=== PATIENT | male | born 1940 | race Caucasian/White ===

== ENCOUNTER 2016-11-23 10:16 | Day surgery (SDC) | payer OTHER ==
[2016-11-23 12:15] VITALS: BMI 29.0
[2016-11-23] MEDS ORDERED: ROCURONIUM BROMIDE 50 MG/5 ML VIAL ONE (13:18)
[2016-11-23] MEDS ORDERED: PROPOFOL 20 ML ONE (13:18)
[2016-11-23] MEDS ORDERED: NEOSTIGMINE METHYLSULFATE 0.5 MG/ML - 10 ML MDV ONE (13:18)
[2016-11-23] MEDS ORDERED: ONDANSETRON 4 MG/2 ML VIAL ONE (13:18)
[2016-11-23] MEDS ORDERED: GLYCOPYRROLATE 0.2 MG/1 ML VIAL ONE ×3 (13:18)
[2016-11-23] MEDS ORDERED: METOCLOPRAMIDE HCL INJECTION 10 MG/2 ML VIAL ONE (13:19)
[2016-11-23] MEDS ORDERED: ceFAZolin SODIUM 1 GM VIAL ONE (13:41)
[2016-11-23] MEDS ORDERED: INDOMETHACIN 50 MG RECTAL SUPPOSITORY PR ONE (14:28)
[2016-11-23] MEDS ORDERED: IOHEXOL 300 MG/ML INFUS..BTL IV ONE (14:29)
[2016-11-23 14:30] VITALS: TEMP 98.3
[2016-11-23 14:44] VITALS: PULSE 53
[2016-11-23 15:23] VITALS: BP 136/65
[2016-11-24] MEDS ORDERED: INDOMETHACIN 50 MG RECTAL SUPPOSITORY PR SCH (10:00)
== END 2016-11-23 16:00 | disposition home or self-care (01) ==
LOC: JASU-ENDO 10:16
PROVIDERS: ATTEND Internal Medicine Gastroenterology
PROC: 0FC98ZZ Extirpation of Matter from Common Bile Duct, Via Natural or Artificial Opening Endoscopic (ICD-10-PCS; principal; 2016-11-23 13:00)
DX: K80.50 Calculus of bile duct without cholangitis or cholecystitis without obstruction (principal)
CPT/HCPCS: 74330-TC

== ENCOUNTER 2016-11-24 10:57 | Inpatient (IN) | payer OTHER ==
--- NOTE | 2016-11-24 11:12 | PDOC ---
History of Present Illness - General History Source: Patient Exam Limitations: No Limitations - History of Present Illness Initial Comments: 11/24/16 11:56 The patient is a 76 year old male, with a significant past medical history of CVA, HTN, depression, and hypercholesterolemia, who presents to the emergency department s/p ERCP yesterday with a subjective fever and chills last night. The patient also notes having chief complaints of abdominal bloating/pain, ranking his pain a 9/10 in pain intensity. The patients notes giving the patient Tylenol yesterday, after the onset of his subjective fevers/chills, with some alleviation of his symptoms. The patients reports that he has had 3 episodes of fevers and chills since the ERCP. He also reports anorexia and has not eaten since yesterday. He denies any recent, headache or dizziness. He denies any recent nausea, vomit, diarrhea or constipation. He denies any recent chest pain or shortness of breath. He denies any recent dysuria, frequency, urgency or hematuria. Allergies: NKA Past surgical history: None reported. Social History: Nonsmoker. Denies EtOH use and recreational drug use. Primary Care Physician: Dr. Sharma <Rancho Packer - Last Filed: 11/24/16 11:56> <Lynn Coppola - Last Filed: 11/24/16 21:31> - General Chief Complaint: Pain Stated Complaint: [id number] Time Seen by Provider: 11/24/16 11:12 Past History <Rancho Packer - Last Filed: 11/24/16 11:56> - Past Medical History Cardiac Disorders: Yes CVA: Yes GI Disorders: Yes (HIATAL HERNIA, COLON POLYP) HTN: Yes Hypercholesterolemia: Yes Liver Disease: Yes (FATTY LIVER, HEPATIC CYST) - Surgical History Abdominal Surgery: Yes Appendectomy: Yes Cardiac Surgery: No Neurologic Surgery: Yes - Psycho/Social/Smoking Cessation Hx Anxiety: No Suicidal Ideation: No Smoking Status: No Smoking History: Never smoked Have you smoked in the past 12 months: No Number of Cigarettes Smoked Daily: 0 If you are a former smoker, when did you quit?: MANY YRS AGO Hx Alcohol Use: No Drug/Substance Use Hx: No Substance Use Type: None <Lynn Coppola - Last Filed: 11/24/16 21:31> - Past Medical History Allergies/Adverse Reactions: Allergies Allergy/AdvReac Type Severity Reaction Status Date / Time No Known Allergies Allergy Verified 11/24/16 11:09 Home Medications: Ambulatory Orders Aspirin [ASA -] 81 mg PO DAILY 10/13/11 Meclizine HCl [Antivert -] 25 mg PO TID #0 tablet 10/13/11 Tamsulosin HCl 0.4 mg PO DAILY 10/13/11 Cholecalciferol (Vitamin D3) [Vitamin D3 -] 1,000 unit PO DAILY 11/23/16 Nebivolol HCl [Bystolic] 2 mg PO DAILY 11/23/16 Pantoprazole Sodium [Protonix -] 20 mg PO DAILY 11/23/16 Paroxetine HCl [Paxil -] 20 mg PO DAILY 11/23/16 Ubidecarenone [Co Q-10] 300 mg PO DAILY 11/23/16 Losartan 50Mg/Hctz 12.5MG [Hyzaar -] 0.5 tab PO HS 11/24/16 Review of Systems - Review of Systems Able to Perform ROS?: Yes Comments:: 11/24/16 11:56 GENERAL/CONSTITUTIONAL: +fever and chills. No weakness. HEAD, EYES, EARS, NOSE AND THROAT: No change in vision. No ear pain or discharge. No sore throat. CARDIOVASCULAR: No chest pain or shortness of breath. RESPIRATORY: No cough, wheezing, or hemoptysis. GASTROINTESTINAL:+abdominal pain. No nausea, vomiting, diarrhea or constipation. GENITOURINARY: No dysuria, frequency, or change in urination. MUSCULOSKELETAL: No joint or muscle swelling or pain. No neck or back pain. SKIN: No rash NEUROLOGIC: No headache, vertigo, loss of consciousness, or change in strength/ sensation. ENDOCRINE: No increased thirst. No abnormal weight change. HEMATOLOGIC/LYMPHATIC: No anemia, easy bleeding, or history of blood clots. ALLERGIC/IMMUNOLOGIC: No hives or skin allergy. <Rancho Packer - Last Filed: 11/24/16 11:56> *Physical Exam - Vital Signs Last Vital Signs Temp Pulse Resp BP Pulse Ox 98.2 F 95 H 20 126/60 98 11/24/16 11:03 11/24/16 11:03 11/24/16 11:03 11/24/16 11:03 11/24/16 11:38 - Physical Exam Comments: 11/24/16 11:56 GENERAL: Awake, alert, and fully oriented, in no acute distress HEAD: No signs of trauma EYES: PERRLA, EOMI, sclera anicteric, conjunctiva clear ENT: Auricles normal inspection, hearing grossly normal, nares patent, oropharynx clear without exudates. Moist mucosa NECK: Normal ROM, supple, no lymphadenopathy, JVD, or masses LUNGS: Breath sounds equal, clear to auscultation bilaterally. No wheezes, and no crackles HEART: Regular rate and rhythm, normal S1 and S2, no murmurs, rubs or gallops ABDOMEN: Distended abdomen with diffuse tenderness to palpation worse around the amarilys-umbilical area with rebound pain. No masses EXTREMITIES: Normal range of motion, no edema. No clubbing or cyanosis. No cords , erythema, or tenderness NEUROLOGICAL: Normal speech, cranial nerves intact, negative pronator drift, 5/ 5 strength in all 4 extremities, normal sensation to light touch in all 4 extremities, normal cerebellar exam, normal gait, normal reflexes and tone SKIN: Warm, Dry, normal turgor, no rashes or lesions noted. <Rancho Packer - Last Filed: 11/24/16 11:56> - Vital Signs Last Vital Signs Temp Pulse Resp BP Pulse Ox 98.2 F 95 H 20 126/60 92 L 11/24/16 11:03 11/24/16 11:03 11/24/16 11:03 11/24/16 11:03 11/24/16 11:03 <Lynn Coppola - Last Filed: 11/24/16 21:31> Heart Score/ECG Review #1 11/24/16 21:31 NSR, rate 78, normal axis and intervals, no NADINE, isolated TWI lead III <Lynn Coppola - Last Filed: 11/24/16 21:31> ED Treatment Course - LABORATORY CBC & Chemistry Diagram: 11/24/16 11:55 11/24/16 11:55 <Lynn Coppola - Last Filed: 11/24/16 21:31> Medical Decision Making - Medical Decision Making 11/24/16 11:41 76yo M hx HTN, BPH, depression, s/p ERCP for choledocholithiasis presents today with fevers, chills, abd pain, and anorexia since last night. Afebrile here but got tylenol 2 hours ago. Exam with diffuse abd pain w rebound. Presentation c/f post ERCP cholangitis vs perf. -labs -zosyn +vancomycin -ivf -CTAP -GI c/s -reassess 11/24/16 16:33 CTAP with likely duodenal perf, free air, and pancreatitis. ALso likely reactive ascending colitis. Dr. Sharma aware, NG tube placed. Pt to be admitted to the ICU for further management. Per Dr. Sharma, Dr. Cardoso and Alli already aware. 11/24/16 17:[address] Gordillo who will be the admitting attending, she is aware of the case. Also, spoke with Dr. Chang from ID who recommends that we add meropenem. Darryn ordered. 11/24/16 17:[address] Jones from surgery who is aware of the case and will see pt. <Lynn Coppola - Last Filed: 11/24/16 21:31> *DC/Admit/Observation/Transfer - Attestations Scribe Attestion: 11/24/16 11:57 Documentation prepared by Rancho Packer, acting as medical administrator for Lynn Coppola MD. <Rancho Packer - Last Filed: 11/24/16 11:56> - Discharge Dispostion Admit: Yes - Attestations Physician Attestion: 11/24/16 16:35 I, Dr. Lynn Coppola MD, attest that this document has been prepared under my direction and personally reviewed by me in its entirety. I further attest, that it accurately reflects all work, treatment, procedures and medical decision -making performed by me. <Lynn Coppola - Last Filed: 11/24/16 21:31> Diagnosis at time of Disposition: Abdominal pain Qualifiers: Abdominal location: generalized Qualified Code(s): R10.84 - Generalized abdominal pain - Discharge Dispostion Condition at time of disposition: Stable - Referrals
[2016-11-24] MEDS ORDERED: PIPERACILLIN/TAZOB 4.5 GM 4.5 GM in DEXTROSE 5%-WATER - 100 ML IVPB ONE (11:35)
[2016-11-24] MEDS ORDERED: SODIUM CHLORIDE 0.9% 500 ML INFUS.BAG IV ONE ×2 (11:36→13:21)
[2016-11-24 12:02] LABS: MCH 29.1 pg (25.7-33.7); MEAN CELL VOLUME 88.1 fl (80-96); MEAN PLT VOLUME 8.2 fl (7.5-11.1); PLATELET COUNT 240 K/MM3 (134-434); RDW 14.6 % (11.9-15.9); WHITE BLOOD COUNT 27.7 K/mm3 (4.0-10.0)
[2016-11-24 12:19] LABS: INR 1.29 (0.82-1.09); PROTHROMBIN TIME (PATIENT) 14.3 SEC (9.98-11.88)
[2016-11-24] MEDS ORDERED: PIPERACILLIN/TAZOB 4.5 GM 100 ML IVPB ONE (12:19)
[2016-11-24 12:21] LABS: ACTIVATED PTT 30.4 SECONDS (26.9-34.4)
[2016-11-24 12:26] LABS: ALBUMIN 3.4 g/dl (3.4-5.0); ANION GAP 7 (8-16); CALCIUM 9.3 mg/dL (8.5-10.1); CO2 29 mmol/L (21-32); GLUCOSE,RANDOM 153 mg/dL (74-106); MAGNESIUM 1.8 mg/dL (1.8-2.4)
[2016-11-24 12:29] LABS: CREATININE 1.2 mg/dL (0.7-1.3); SGOT/AST 15 U/L (15-37); SGPT/ALT 19 U/L (12-78)
[2016-11-24 12:30] LABS: ALK PHOS 60 U/L (45-117)
[2016-11-24 12:32] LABS: URINE APPEARANCE SLCLOUDY; URINE BILIRUBIN NEGATIVE (NEGATIVE); URINE BLOOD NEGATIVE (NEGATIVE); URINE COLOR AMBER; URINE GLUCOSE (UA) NEGATIVE (NEGATIVE); URINE KETONE TRACE (NEGATIVE); URINE LEUK ESTERASE NEGATIVE (NEGATIVE); URINE NITRITE NEGATIVE (NEGATIVE); URINE UROBILINOGEN NEGATIVE mg/dL (0.2-1.0)
[2016-11-24 12:34] LABS: URINE PROTEIN 1+ (NEGATIVE)
[2016-11-24 12:36] LABS: URINE HYALINE CAST 5 /lpf; URINE MUCUS FEW; URINE RBC 3 /hpf (0-3); URINE WBC 1 /hpf (3-5)
[2016-11-24 12:37] LABS: TOTAL CELLS COUNTED 100
[2016-11-24 12:38] LABS: METAMYELOCYTE 1 % (0-2)
[2016-11-24] MEDS ORDERED: VANCOMYCIN 1,000 MG in DEXTROSE 5%-WATER - 250 ML IVPB ONE (16:31)
--- NOTE | 2016-11-24 16:46 | CON.GI ---
Consult Consult Specialty:: Gastroenterology Referred by:: Dr Gordillo Reason for Consultation:: abdominal pain - History of Present Illness History of Present Illness: 76 y/o male s/p ERCP with removal of large stone yesterday. He was discharge with no abdominal pain,no nausea and vomiting. Last night he developed severe abdominal pain and fever. He was instructed to go to the emergenvy room. The WBC was 28,000. The cats scan was reviwed and was noted to have perforation in the area to the duodenum with 8cm collection. There was no leakage of dye outside the lumen. There was mild ileus. NGT was inserted and a total of 500 cc of dark fluid was obtained,. - Alcohol/Substance Use Hx Alcohol Use: No - Smoking History Smoking history: Never smoked Have you smoked in the past 12 months: No Aproximately how many cigarettes per day: 0 If you are a former smoker, when did you quit?: MANY YRS AGO Home Medications - Allergies Allergies/Adverse Reactions: Allergies Allergy/AdvReac Type Severity Reaction Status Date / Time No Known Allergies Allergy Verified 11/24/16 11:09 - Home Medications Home Medications: Ambulatory Orders Aspirin [ASA -] 81 mg PO DAILY 10/13/11 Meclizine HCl [Antivert -] 25 mg PO TID #0 tablet 10/13/11 Tamsulosin HCl 0.4 mg PO DAILY 10/13/11 Cholecalciferol (Vitamin D3) [Vitamin D3 -] 1,000 unit PO DAILY 11/23/16 Nebivolol HCl [Bystolic] 2 mg PO DAILY 11/23/16 Pantoprazole Sodium [Protonix -] 20 mg PO DAILY 11/23/16 Paroxetine HCl [Paxil -] 20 mg PO DAILY 11/23/16 Ubidecarenone [Co Q-10] 300 mg PO DAILY 11/23/16 Losartan 50Mg/Hctz 12.5MG [Hyzaar -] 0.5 tab PO HS 11/24/16 Review of Systems - Review of Systems Constitutional: reports: Fever HENT: denies: Difficult Swallowing, Throat Pain Cardiovascular: denies: Chest Pain Gastrointestinal: reports: Abdominal Pain (--ruq). denies: Bloating, Constipation, Dysphagia, Indigestion, Melena Physical Exam-GI Vital Signs: Vital Signs Temperature 98.2 F 11/24/16 11:03 Pulse Rate 95 H 11/24/16 11:03 Respiratory Rate 20 11/24/16 11:03 Blood Pressure 126/60 11/24/16 11:03 O2 Sat by Pulse Oximetry (%) 98 11/24/16 11:38 Constitutional: Yes: Well Nourished Eyes: Yes: Conjunctiva Clear HENT: Yes: Atraumatic Neck: Yes: Supple Cardiovascular: Yes: Regular Rate and Rhythm Respiratory: Yes: CTA Bilaterally Gastrointestinal Inspection: Yes: Distention ...Palpate: Yes: Soft, Tenderness (--ruq resolved after NGT drainage). No: Firm /Rigid, Guarding, Hepatomegaly, Mass, Pulsatile Mass, Splenomegaly ...Percussion: Yes: Tympanitic Labs: CBC, BMP 11/24/16 11:55 11/24/16 11:55 INR, PTT INR 1.29 (0.82-1.09) H 11/24/16 11:55 Problem List - Problems (1) Duodenal perforation Assessment/Plan: after ERCp with removal of large CBD stone R> NGT drainage IV antibiotics Iv hydration surgical consultation Code(s): K63.1 - PERFORATION OF INTESTINE (NONTRAUMATIC)
[2016-11-24] MEDS ORDERED: VANCOMYCIN 1 GRAM (PRE-DOCKED) 250 ML IVPB ONE (16:51)
[2016-11-24] MEDS ORDERED: DEXTROSE 5%-NORMAL SALINE 1,000 ML IV SCH (17:00)
[2016-11-24] MEDS ORDERED: MEROPENEM 1,000 MG in DEXTROSE 5%-WATER - 100 ML IVPB ONE (17:10)
[2016-11-24] MEDS ORDERED: IMIPENEM/CILASTATIN SODIUM 500 MG in DEXTROSE 5%-WATER - 100 ML IVPB ONE (17:30)
[2016-11-24] MEDS ORDERED: MEROPENEM 1 GM in DEXTROSE 5%-WATER - 100 ML IVPB SCH (18:00)
[2016-11-24] MEDS ORDERED: HYDROmorphone HCL CARPU-JECT 1 MG/1 ML DISP.SYRIN ONE (18:10)
[2016-11-24] MEDS: HYDROmorphone HCL CARPU-JECT 1 MG/1 ML DISP.SYRIN IVPB PRN (18:22)
[2016-11-24] MEDS ORDERED: METRONIDAZOLE 500 MG PREMIXED 100 ML IVPB ONE (18:26)
[2016-11-24] MEDS ORDERED: METOCLOPRAMIDE HCL INJECTION 10 MG/2 ML VIAL ONE (18:26)
[2016-11-24] MEDS: METOCLOPRAMIDE HCL INJECTION 10 MG/2 ML VIAL IVPB SCH (18:34)
[2016-11-24] MEDS: METRONIDAZOLE 500 MG PREMIXED 100 ML IVPB SCH (18:59)
--- NOTE | 2016-11-24 20:35 | HP ---
Admitting History and Physical - Admission Chief Complaint: Abdominal pain History of Present Illness: Pt is a 76 y/o male w/ PMH significant for HTN, HLD, CVA, BPH and depression. Pt also has a h/o choledocholithiasis and underwent ERCP yesterday w/ stone extraction. Pt last night developed fever and chills wc was accompanied w/ abdominal discomfort and bloating. Pt denied any N/V and no diarrhea/ constipation. 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 Cardiovascular: Yes: HTN, Hyperlipdemia Gastrointestinal: Yes: Other (Choledocholithiasis) Renal/: Yes: BPH Psych: Yes: Depression - Smoking History Smoking history: Never smoked Have you smoked in the past 12 months: No Aproximately how many cigarettes per day: 0 If you are a former smoker, when did you quit?: MANY YRS AGO - Alcohol/Substance Use Hx Alcohol Use: No Home Medications - Allergies Allergies/Adverse Reactions: Allergies Allergy/AdvReac Type Severity Reaction Status Date / Time No Known Allergies Allergy Verified 11/24/16 11:09 - Home Medications Home Medications: Ambulatory Orders Aspirin [ASA -] 81 mg PO DAILY 10/13/11 Meclizine HCl [Antivert -] 25 mg PO TID #0 tablet 10/13/11 Tamsulosin HCl 0.4 mg PO DAILY 10/13/11 Cholecalciferol (Vitamin D3) [Vitamin D3 -] 1,000 unit PO DAILY 11/23/16 Nebivolol HCl [Bystolic] 2 mg PO DAILY 11/23/16 Pantoprazole Sodium [Protonix -] 20 mg PO DAILY 11/23/16 Paroxetine HCl [Paxil -] 20 mg PO DAILY 11/23/16 Ubidecarenone [Co Q-10] 300 mg PO DAILY 11/23/16 Losartan 50Mg/Hctz 12.5MG [Hyzaar -] 0.5 tab PO HS 11/24/16 Family Disease History - Family Disease History Family History: Unremarkable Review of Systems - Review of Systems Constitutional: reports: Chills, Fever Eyes: reports: No Symptoms HENT: reports: No Symptoms Neck: reports: No Symptoms Cardiovascular: reports: No Symptoms Respiratory: reports: No Symptoms Gastrointestinal: reports: Abdominal Pain, Bloating Genitourinary: reports: No Symptoms Musculoskeletal: reports: No Symptoms Physical Examination Vital Signs: Vital Signs Temperature 98.3 F 11/24/16 16:56 Pulse Rate 95 H 11/24/16 16:56 Respiratory Rate 17 11/24/16 16:56 Blood Pressure 131/83 11/24/16 16:56 O2 Sat by Pulse Oximetry (%) 97 11/24/16 18:28 Constitutional: Yes: No Distress HENT: Yes: WNL Neck: Yes: WNL, Supple Cardiovascular: Yes: WNL, Regular Rate and Rhythm Respiratory: Yes: WNL, Regular, CTA Bilaterally Gastrointestinal: Yes: Normal Bowel Sounds, Soft, Tenderness, Other Musculoskeletal: Yes: WNL Extremities: Yes: WNL Edema: No Neurological: Yes: WNL ...Motor Strength: WNL Problem List - Problems (1) Abdominal pain Assessment/Plan: Due to duodenal perforation/pancreatitis GI/Surgical consults Cont IVF/NPO Cont IV antibxs Code(s): R10.9 - UNSPECIFIED ABDOMINAL PAIN Qualifiers: Abdominal location: generalized Qualified Code(s): R10.84 - Generalized abdominal pain (2) Duodenal perforation Code(s): K63.1 - PERFORATION OF INTESTINE (NONTRAUMATIC) (3) Pancreatitis Assessment/Plan: Cont IVF Cont IV antibxs Monitor labs Code(s): K85.90 - ACUTE PANCREATITIS WITHOUT NECROSIS OR INFECTION, UNSP (4) HTN (hypertension) Assessment/Plan: Monitor BP Antihypertensives on hold while pt is NPO Code(s): I10 - ESSENTIAL (PRIMARY) HYPERTENSION (5) HLD (hyperlipidemia) Code(s): E78.5 - HYPERLIPIDEMIA, UNSPECIFIED (6) BPH (benign prostatic hyperplasia) Code(s): N40.0 - BENIGN PROSTATIC HYPERPLASIA WITHOUT LOWER URINRY TRACT SYMP
[2016-11-24 20:51] VITALS: BMI 29.3
--- NOTE | 2016-11-24 21:21 | CONSULT ---
Consult Consult Specialty:: PUlm/CCM Reason for Consultation:: Duodenal perforation post ERCP - History of Present Illness Chief Complaint: Abd pain; fever History of Present Illness: 76yom with PMHx CVA, HTN, HLD, BPH, depression, choledocholelithiasis s/p ERCP on 11/23 now presents with c/o fever, chills, abd pain and distension. CT scan s/ f duodenal perforation and pancreatitis. In ED VSS. Labs notable for WBC 28, Lipase 8488. GI consulted. Made NPO. Started on meropenem, flagyl and IVF. He denied CP, SOB, n/v/d but reports anorexia and constipation. He is transferred to ICU for management. In ICU rec'd A+O x3 c/o 10/21 abd pain. VS HR 103, BP 125/68, RR 18, T 99.3, O2sat 91% on 3L NC. + abdominal distension and tenderness to palpation. Voiding w/o difficulty. pain improved with Tylenol and dilaudid IV. O2 sat 96% on 5L. 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 Cardio/Vascular: Yes: HTN, Hyperlipdemia Hepatobiliary: Yes: Cholelithiasis Psych: Yes: Depression - Past Surgical History Additional Surgical History: ERCP 11/23/16 - Alcohol/Substance Use Hx Alcohol Use: No - Smoking History Smoking history: Never smoked Have you smoked in the past 12 months: No Aproximately how many cigarettes per day: 0 If you are a former smoker, when did you quit?: MANY YRS AGO - Social History Usual Living Arrangement: With Spouse History of Recent Travel: No Home Medications - Allergies Allergies/Adverse Reactions: Allergies Allergy/AdvReac Type Severity Reaction Status Date / Time No Known Allergies Allergy Verified 11/24/16 11:09 - Home Medications Home Medications: Ambulatory Orders Aspirin [ASA -] 81 mg PO DAILY 10/13/11 Meclizine HCl [Antivert -] 25 mg PO TID #0 tablet 10/13/11 Tamsulosin HCl 0.4 mg PO DAILY 10/13/11 Cholecalciferol (Vitamin D3) [Vitamin D3 -] 1,000 unit PO DAILY 11/23/16 Nebivolol HCl [Bystolic] 2 mg PO DAILY 11/23/16 Pantoprazole Sodium [Protonix -] 20 mg PO DAILY 11/23/16 Paroxetine HCl [Paxil -] 20 mg PO DAILY 11/23/16 Ubidecarenone [Co Q-10] 300 mg PO DAILY 11/23/16 Losartan 50Mg/Hctz 12.5MG [Hyzaar -] 0.5 tab PO HS 11/24/16 Review of Systems - Review of Systems Constitutional: reports: Chills, Fever Eyes: reports: No Symptoms HENT: reports: No Symptoms Neck: reports: No Symptoms Cardiovascular: reports: No Symptoms Respiratory: reports: No Symptoms Gastrointestinal: reports: Abdominal Pain, Bloating, Other (Constipation) Genitourinary: reports: No Symptoms Musculoskeletal: reports: No Symptoms Neurological: reports: No Symptoms Hematology/Lymphatic: reports: No Symptoms Psychiatric: reports: No Symptoms Pain Intensity: 7 Physical Exam Vital Signs: Vital Signs Temperature 98.3 F 11/24/16 16:56 Pulse Rate 95 H 11/24/16 16:56 Respiratory Rate 17 11/24/16 16:56 Blood Pressure 131/83 11/24/16 16:56 O2 Sat by Pulse Oximetry (%) 97 11/24/16 18:28 Constitutional: Yes: Well Nourished, No Distress, Calm Eyes: Yes: WNL HENT: Yes: Atraumatic, Normocephalic Neck: Yes: Supple, Trachea Midline Cardiovascular: Yes: Tachycardia Respiratory: Yes: WNL, Diminished (Bibasilar), On Nasal O2 Gastrointestinal: Yes: Abdomen, Obese, Distention, Hypoactive Bowel Sounds, Tenderness, Other (NGT to suction) Renal/: Yes: WNL Musculoskeletal: Yes: WNL, Back Pain Extremities: Yes: WNL Edema: No Peripheral Pulses WNL: Yes Integumentary: Yes: WNL Neurological: Yes: Alert, Oriented ...Motor Strength: WNL Psychiatric: Yes: Alert, Oriented Labs: CBC,CMP WBC 27.7 K/mm3 (4.0-10.0) H D 11/24/16 11:55 RBC 5.07 M/mm3 (4.00-5.60) 11/24/16 11:55 Hgb 14.7 GM/dL (11.7-16.9) 11/24/16 11:55 Hct 44.7 % (35.4-49) 11/24/16 11:55 MCV 88.1 fl (80-96) 11/24/16 11:55 MCH 29.1 pg (25.7-33.7) 11/24/16 11:55 MCHC 33.0 g/dl (32.0-35.9) 11/24/16 11:55 RDW 14.6 % (11.9-15.9) 11/24/16 11:55 Plt Count 240 K/MM3 (134-434) 11/24/16 11:55 MPV 8.2 fl (7.5-11.1) 11/24/16 11:55 Total Counted 100 11/24/16 11:55 Neutrophils % Y 11/24/16 11:55 Neutrophils % (Manual) 86 % (42.8-82.8) H 11/24/16 11:55 Band Neuts % (Manual) 1 % (0-10) 11/24/16 11:55 Lymphocytes % Y 11/24/16 11:55 Lymphocytes % (Manual) 8 % (8-40) 11/24/16 11:55 Monocytes % (Manual) 4 % (3.8-10.2) 11/24/16 11:55 Sodium 134 mmol/L (136-145) L 11/24/16 11:55 Potassium 5.1 mmol/L (3.5-5.1) D 11/24/16 11:55 Chloride 98 mmol/L (98-107) 11/24/16 11:55 Carbon Dioxide 29 mmol/L (21-32) 11/24/16 11:55 Anion Gap 7 (8-16) L 11/24/16 11:55 BUN 20 mg/dL (7-18) H D 11/24/16 11:55 Creatinine 1.2 mg/dL (0.7-1.3) D 11/24/16 11:55 Creat Clearance w eGFR 59.02 (>60) 11/24/16 11:55 Random Glucose 153 mg/dL (74-106) H 11/24/16 11:55 Calcium 9.3 mg/dL (8.5-10.1) 11/24/16 11:55 Magnesium 1.8 mg/dL (1.8-2.4) 11/24/16 11:55 Total Bilirubin 1.0 mg/dL (0.2-1.0) D 11/24/16 11:55 AST 15 U/L (15-37) D 11/24/16 11:55 ALT 19 U/L (12-78) D 11/24/16 11:55 Alkaline Phosphatase 60 U/L (45-117) 11/24/16 11:55 Total Protein 7.0 g/dl (6.4-8.2) 11/24/16 11:55 Albumin 3.4 g/dl (3.4-5.0) 11/24/16 11:55 Lipase 8488 U/L (73-393) H 11/24/16 11:55 Current Medications Hydromorphone HCl (Dilaudid Injection -) 1 mg IVPB Q4H PRN PRN Reason: PAIN Stop: 11/25/16 17:45 Last Admin: 11/24/16 18:22 Dose: 1 mg Metronidazole (Flagyl 500mg Premixed Ivpb -) 100 mls @ 100 mls/hr IVPB Q8H-IV MATILDE Last Admin: 11/24/16 18:59 Dose: 100 mls/hr Dextrose/Sodium Chloride (D5-Ns -) 1,000 mls @ 150 mls/hr IV ASDIR MATILDE Stop: 11/26/16 23:39 Last Admin: 11/24/16 17:47 Dose: 150 mls/hr Pantoprazole Sodium 40 mg/ (Sodium Chloride) 100 mls @ 200 mls/hr IVPB BID MATILDE Meropenem 1 gm/ Dextrose 100 mls @ 100 mls/hr IVPB Q8H-IV MATILDE PRN Reason: Protocol Metoclopramide HCl (Reglan Injection -) 10 mg IVPB Q8H-IV MATILDE Last Admin: 11/24/16 18:34 Dose: 10 mg Intake & Output 11/21/16 11/22/16 11/23/16 11/24/16 23:59 23:59 23:59 23:59 Output Total 650 Balance -650 Weight 85 kg Imaging - Results Cat Scan: Report Reviewed Ultrasound: Report Reviewed Problem List - Problems (1) Abdominal pain Code(s): R10.9 - UNSPECIFIED ABDOMINAL PAIN Qualifiers: Abdominal location: generalized Qualified Code(s): R10.84 - Generalized abdominal pain (2) Duodenal perforation Code(s): K63.1 - PERFORATION OF INTESTINE (NONTRAUMATIC) (3) Ileus Code(s): K56.7 - ILEUS, UNSPECIFIED Assessment/Plan 76yom with PMHx CVA, HTN, HLD, choledocholelithiasis s/p ERCP on 11/23 now presents with abd pain and distension, found to have duodenal perforation and pancreatitis. Admitted to ICU for management. Plan: -GI consult -HD monitoring -NPO -IVF at 150cc/h for pancreatitis -Calc Arvilla score -NGT to LWS for bowel rest -Cont anaerobic coverage meropenem and flagyl -Pain management -trend WBC and temps -Monitor lactate and lipase -PPI -DVT prophylaxis
[2016-11-24] MEDS ORDERED: ACETAMINOPHEN 1000 MG/100 ML VIAL (NON FORMULARY) IVPB PRN (21:34)
[2016-11-24] MEDS: PANTOPRAZOLE SODIUM 40 MG in SODIUM CHLORIDE 100 ML IVPB SCH (23:37)
[2016-11-25] MEDS: METRONIDAZOLE 500 MG PREMIXED 100 ML IVPB SCH ×3 (02:00→17:30)
[2016-11-25] MEDS: MEROPENEM 1 GM in DEXTROSE 5%-WATER - 100 ML IVPB SCH ×3 (02:00→17:30)
[2016-11-25] MEDS: METOCLOPRAMIDE HCL INJECTION 10 MG/2 ML VIAL IVPB SCH ×3 (02:54→17:30)
[2016-11-25] MEDS: HYDROmorphone HCL CARPU-JECT 1 MG/1 ML DISP.SYRIN IVPB PRN ×2 (04:25→11:53)
[2016-11-25 06:05] LABS: MCH 29.6 pg (25.7-33.7); MEAN CELL VOLUME 89.6 fl (80-96); MEAN PLT VOLUME 9.4 fl (7.5-11.1); PLATELET COUNT 252 K/MM3 (134-434); RDW 15.4 % (11.9-15.9); WHITE BLOOD COUNT 20.8 K/mm3 (4.0-10.0)
--- NOTE | 2016-11-25 06:07 | CONSULT ---
Consult Consult Specialty:: surgery - History of Present Illness Chief Complaint: abdominal pain History of Present Illness: 76 y/o male s/p ERCP with removal of large stone yesterday, was discharge with no abdominal pain,no nausea and vomiting. Last night he developed severe abdominal pain and fever. He was evaluated in the emergenvy room. The WBC was 28,000. The cats scan was reviewed and was noted to have microperforation in the area to the duodenum with air bubbles in the retroperitoneum and 8cm collection. There was no extravasation of dye outside the lumen. There was mild ileus. . 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 Cardio/Vascular: Yes: HTN, Hyperlipdemia Gastrointestinal: Yes: Other (Choledocholithiasis) Hepatobiliary: Yes: Cholelithiasis Renal/: Yes: BPH Psych: Yes: Depression - Past Surgical History Additional Surgical History: ERCP 11/23/16 - Alcohol/Substance Use Hx Alcohol Use: No - Smoking History Smoking history: Never smoked Have you smoked in the past 12 months: No Aproximately how many cigarettes per day: 0 If you are a former smoker, when did you quit?: MANY YRS AGO - Social History Usual Living Arrangement: With Spouse History of Recent Travel: No Home Medications - Allergies Allergies/Adverse Reactions: Allergies Allergy/AdvReac Type Severity Reaction Status Date / Time No Known Allergies Allergy Verified 11/24/16 11:09 - Home Medications Home Medications: Ambulatory Orders Aspirin [ASA -] 81 mg PO DAILY 10/13/11 Meclizine HCl [Antivert -] 25 mg PO TID #0 tablet 10/13/11 Tamsulosin HCl 0.4 mg PO DAILY 10/13/11 Cholecalciferol (Vitamin D3) [Vitamin D3 -] 1,000 unit PO DAILY 11/23/16 Nebivolol HCl [Bystolic] 2 mg PO DAILY 11/23/16 Pantoprazole Sodium [Protonix -] 20 mg PO DAILY 11/23/16 Paroxetine HCl [Paxil -] 20 mg PO DAILY 11/23/16 Ubidecarenone [Co Q-10] 300 mg PO DAILY 11/23/16 Losartan 50Mg/Hctz 12.5MG [Hyzaar -] 0.5 tab PO HS 11/24/16 Physical Exam Vital Signs: Vital Signs Temperature 98.2 F 11/25/16 02:00 Pulse Rate 90 11/25/16 02:00 Respiratory Rate 18 11/25/16 02:00 Blood Pressure 93/78 11/25/16 02:00 O2 Sat by Pulse Oximetry (%) 97 11/24/16 21:00 Gastrointestinal: Yes: Other (right side tenderness with guarding and distention ) Imaging - Results Cat Scan: Report Reviewed, Image Reviewed Problem List - Problems (1) Duodenal perforation Assessment/Plan: 76 yr old s/p ERCP with micro perforation and post ERCP pancreatitis Agree with current management close observation/ IV hydration/ antibiotics /repeat CT in the next 2-3 days Will consider surgery only in the case of clinical deterioration Code(s): K63.1 - PERFORATION OF INTESTINE (NONTRAUMATIC)
[2016-11-25 06:23] LABS: INR 1.67 (0.82-1.09); PROTHROMBIN TIME (PATIENT) 18.6 SEC (9.98-11.88)
[2016-11-25 06:37] LABS: ALBUMIN 2.7 g/dl (3.4-5.0); ANION GAP 8 (8-16); CALCIUM 7.9 mg/dL (8.5-10.1); CO2 27 mmol/L (21-32); CREATININE 1.3 mg/dL (0.7-1.3); GLUCOSE,RANDOM 136 mg/dL (74-106); SGOT/AST 15 U/L (15-37); SGPT/ALT 14 U/L (12-78)
[2016-11-25 06:42] LABS: ALK PHOS 50 U/L (45-117); BILIRUBIN,TOTAL 0.9 mg/dL (0.2-1.0); CPK 50 IU/L (39-308); LDH 201 U/L (87-241); TOT PROT 5.9 g/dl (6.4-8.2); TROPONIN I < 0.02 ng/ml (0.00-0.05)
[2016-11-25] MEDS: DEXTROSE 5%-NORMAL SALINE 1,000 ML IV SCH ×2 (09:05→23:27)
--- NOTE | 2016-11-25 09:05 | PN ---
Physical Exam: SUBJECTIVE: 76 yo male w/ pmh of CVA, HTN, BPH, choledocholelithiasis s/p ERCP on 11/23, who now presents with fever, chills, abd pain and distension beginning the night of POD0. CT scan s/f duodenal perforation and pancreatitis, with elevated WBC count of 28k, lipase ~8500. Patient seen and examined this AM: - Afebrile, tachcardic to 100s overnight. - BPs dropped to 90s systolic. Increased IVF D5NS from 150 -> 200 cc/hr in AM. Bolused 500cc w/ BP correction in PM. - Improvement in abdominal pain overnight. Complaining of back pain since admission as well. Denies CP, SOB, dyspnea, fever/chills, ALONSO, lightheadness, diarrhea. Endorse mild constipation and JAROD - Per surgical team, conservative management w/ NPO, NG tube, IVFs - No BM since yesterday. No N/V this AM OBJECTIVE: Vital Signs Intake & Output 11/22/16 11/23/16 11/24/16 11/25/16 23:59 23:59 23:59 23:59 Intake Total 450 1350 Output Total 1100 700 Balance -650 650 Weight 85 kg 85 kg Period Temp Pulse Resp BP Sys/Weber Pulse Ox Last 24 Hr 98.2 F-99.3 F 90-103 16-18 90-131/64-83 97-97 GENERAL: The patient is awake, alert, and fully oriented, in no acute distress. HEAD: Normal with no signs of trauma. EYES: PERRL, extraocular movements intact, sclera anicteric, conjunctiva clear. No ptosis. ENT: Ears normal, nares patent, oropharynx clear with posterior palatal petechiae, moist mucous membranes. NGT in place, draining bilious fluid NECK: Trachea midline, full range of motion, supple. LUNGS: Breath decreased at bases. No wheezes, no crackles, no accessory muscle use. HEART: Regular rate and rhythm, S1, S2 without murmur, rub or gallop. ABDOMEN: Rigid abdomen, tender to palpation in all 4 quadrants, most notably in RUQ, + rebound, + murphys, No organomegaly. EXTREMITIES: 2+ pulses, warm, well-perfused, no edema. NEUROLOGICAL: Cranial nerves II through XII grossly intact. Normal speech, gait not observed. PSYCH: Normal mood, normal affect. SKIN: Warm, dry, normal turgor, no rashes or lesions noted Laboratory Results - last 24 hr CBCD WBC 20.8 K/mm3 (4.0-10.0) H 11/25/16 05:00 RBC 5.23 M/mm3 (4.00-5.60) 11/25/16 05:00 Hgb 15.5 GM/dL (11.7-16.9) 11/25/16 05:00 Hct 46.9 % (35.4-49) 11/25/16 05:00 MCV 89.6 fl (80-96) 11/25/16 05:00 MCHC 33.0 g/dl (32.0-35.9) 11/25/16 05:00 RDW 15.4 % (11.9-15.9) 11/25/16 05:00 Plt Count 252 K/MM3 (134-434) 11/25/16 05:00 MPV 9.4 fl (7.5-11.1) D 11/25/16 05:00 CMP Sodium 135 mmol/L (136-145) L 11/25/16 05:00 Potassium 4.5 mmol/L (3.5-5.1) 11/25/16 05:00 Chloride 100 mmol/L (98-107) 11/25/16 05:00 Carbon Dioxide 27 mmol/L (21-32) 11/25/16 05:00 Anion Gap 8 (8-16) 11/25/16 05:00 BUN 20 mg/dL (7-18) H 11/25/16 05:00 Creatinine 1.3 mg/dL (0.7-1.3) 11/25/16 05:00 Creat Clearance w eGFR 53.82 (>60) 11/25/16 05:00 Calcium 7.9 mg/dL (8.5-10.1) L 11/25/16 05:00 Total Bilirubin 0.9 mg/dL (0.2-1.0) 11/25/16 05:00 AST 15 U/L (15-37) 11/25/16 05:00 ALT 14 U/L (12-78) D 11/25/16 05:00 Alkaline Phosphatase 50 U/L (45-117) 11/25/16 05:00 Total Protein 5.9 g/dl (6.4-8.2) L 11/25/16 05:00 Albumin 2.7 g/dl (3.4-5.0) L D 11/25/16 05:00 11/25/16 11/25/16 11/25/16 05:00 05:00 05:00 WBC 20.8 H RBC 5.23 Hgb 15.5 Hct 46.9 MCV 89.6 MCH 29.6 MCHC 33.0 RDW 15.4 Plt Count 252 MPV 9.4 D INR 1.67 H Sodium 135 L Potassium 4.5 Chloride 100 Carbon Dioxide 27 Anion Gap 8 BUN 20 H Creatinine 1.3 Creat Clearance w eGFR 53.82 Random Glucose 136 H Lactic Acid Calcium 7.9 L Total Bilirubin 0.9 AST 15 ALT 14 D Alkaline Phosphatase 50 LD Total 201 Creatine Kinase 50 Troponin I < 0.02 Total Protein 5.9 L Albumin 2.7 L D 11/25/16 05:00 WBC RBC Hgb Hct MCV MCH MCHC RDW Plt Count MPV INR Sodium Potassium Chloride Carbon Dioxide Anion Gap BUN Creatinine Creat Clearance w eGFR Random Glucose Lactic Acid 3.8 H* Calcium Total Bilirubin AST ALT Alkaline Phosphatase LD Total Creatine Kinase Troponin I Total Protein Albumin Active Medications Generic Name Dose Route Start Last Admin Trade Name Freq PRN Reason Stop Dose Admin Acetaminophen 1,000 mg 11/24/16 21:34 11/24/16 22:53 Ofirmev Injection - IVPB 11/25/16 15:35 1,000 mg Q6H PRN Administration FEVER OR PAIN Heparin Sodium (Porcine) 5,000 unit 11/25/16 10:00 Heparin - SQ BID MATILDE Hydromorphone HCl 1 mg 11/24/16 17:46 11/25/16 04:25 Dilaudid Injection - IVPB 11/25/16 17:45 1 mg Q4H PRN Administration PAIN Metronidazole 100 mls @ 100 mls/hr 11/24/16 18:00 11/25/16 02:00 Flagyl 500mg Premixed Ivpb - IVPB 100 mls/hr Q8H-IV MATILDE Administration Pantoprazole Sodium 40 mg/ 100 mls @ 200 mls/hr 11/24/16 22:00 11/24/16 23:37 Sodium Chloride IVPB 200 mls/hr BID MATILDE Administration Meropenem 1 gm/ Dextrose 100 mls @ 100 mls/hr 11/25/16 02:00 11/25/16 02:00 IVPB 100 mls/hr Q8H-IV MATILDE Administration Protocol Dextrose/Sodium Chloride 1,000 mls @ 200 mls/hr 11/25/16 08:17 D5-Ns - IV 11/26/16 21:59 ASDIR MATILDE Metoclopramide HCl 10 mg 11/24/16 18:00 11/25/16 02:54 Reglan Injection - IVPB 10 mg Q8H-IV MATILDE Administration 11/24/16 11/24/16 11/24/16 11:55 11:55 11:55 WBC 27.7 H D RBC 5.07 Hgb 14.7 Hct 44.7 MCV 88.1 MCHC 33.0 RDW 14.6 Plt Count 240 Neutrophils % Y Lymphocytes % Y INR 1.29 H Sodium 134 L Potassium 5.1 D Chloride 98 Carbon Dioxide 29 Anion Gap 7 L BUN 20 H D Creatinine 1.2 D Blood Type Antibody Screen 11/24/16 11/25/16 11/25/16 11:55 05:00 05:00 WBC 20.8 H RBC 5.23 Hgb 15.5 Hct 46.9 MCV 89.6 MCHC 33.0 RDW 15.4 Plt Count 252 Neutrophils % Lymphocytes % INR 1.67 H Sodium Potassium Chloride Carbon Dioxide Anion Gap BUN Creatinine Blood Type O POSITIVE Antibody Screen Negative 11/25/16 05:00 WBC RBC Hgb Hct MCV MCHC RDW Plt Count Neutrophils % Lymphocytes % INR Sodium 135 L Potassium 4.5 Chloride 100 Carbon Dioxide 27 Anion Gap 8 BUN 20 H Creatinine 1.3 Blood Type Antibody Screen Micro 11/24/16 11:44 Urine Culture - Pending Urine - Urine Clean Catch 11/24/16 11:55 Blood Culture - Pending Blood - Peripheral Venous 11/24/16 11:55 Blood Culture - Pending Blood - Peripheral Venous Imaging: CT abdomen/pelvis (11/24) - 1. Moderate volume of extraluminal gas in the right upper quadrant, predominantly centered around the duodenum. Marked wall thickening in the second and third portions of the duodenum with submucosal edema and pneumatosis along the anterior wall, consistent with duodenitis. The constellation of findings are most likely attributed to duodenal perforation. Surgical evaluation is recommended. 2. Pneumobilia compatible with provided clinical history of recent ERCP. Heterogeneous enhancement of the pancreatic head and uncinate process is compatible with pancreatitis. Please correlate with pancreatic enzymes. 3. Peripancreatic and periduodenal free fluid/phlegmon tracking into the pelvis along Gerota's fascia and paracolic gutter on the right. No drainable collection at this time. 4. Marked circumferential wall thickening of the ascending colon compatible with colitis is likely reactive. 5. Cholelithiasis. No CT evidence of acute cholecystitis. Abdominal U/S (11/24) - 1. Cholelithiasis with positive Ramires's sign. Acute cholecystitis cannot be excluded and a follow- up HIDA scan is recommended. 2. Diffuse fatty infiltration of the liver. Limited study as described above. ASSESSMENT/PLAN: 76 yo male w/ pmh of CVA, HTN, BPH, choledocholelithiasis s/p ERCP on 11/23, who now presents with fever, chills, abd pain and distension beginning the night of POD0. CT scan s/f duodenal perforation and pancreatitis, with elevated WBC count of 28k, lipase ~8500. Pt doing better, w/ decreased abdominal pain and downtrending WBC count (20). Increased IVF for hypotension in AM. Plan for conservative management with NPO, NG tube, IVF and abx coverage for gut edmond. General surgery, ID following. #Neuro - Tylenol 1g IV q4h PRN for pain control #Pulm - O2 2L NC PRN. Titrate to >94% - Incentive spirometer #ID - f/u all cultures. Blood, urine pending - Trend WBC, fever curve. WBC downtrending 27 -> 20 - Continue coverage w/ flagyl, meropenem. Day 1 course - trend lactate - ID recs appreciated #Renal - D5NS 200 cc/hr - Strict I&Os - Daily BMPs, trend BUN/Cr - Monitor lytes #Heme - Trend H/H. Transfuse at <7 #GI - trend lipase - Monitor NGT output - General surgery following. Conservative management - Reglan 10mg IV q8h #FEN -Fluids: D5NS 200 cc/hr -Electrolytes: Daily BMPs, Trend BUN/Cr -Nutrition: NPO #PPX -SubQ Heparin for DVT ppx -PPI for GI ppx #Dispo - Dispo to ICU for further monitoring/management. Nik Cody, PGY1 Plan discussed with attending, Dr. Cardoso Visit type - Emergency Visit Emergency Visit: No - New Patient This patient is new to me today: Yes Date on this admission: 11/25/16 - Critical Care Critical Care patient: Yes Total Critical Care Time (in minutes): 35 Critical Care Statement: The care of this patient involved high complexity decision making to prevent further life threatening deterioration of the patient 's condition and/or to evaluate & treat vital organ system(s) failure or risk of failure.
[2016-11-25] MEDS: PANTOPRAZOLE SODIUM 40 MG in SODIUM CHLORIDE 100 ML IVPB SCH ×2 (09:27→21:05)
[2016-11-25] MEDS: HEPARIN NA (PORCINE) 5,000 UNITS/ML 1ML VIAL SQ SCH ×2 (09:27→21:05)
--- NOTE | 2016-11-25 12:13 | PN ---
Teaching Attending Note Name of Resident: Nik Cody ATTENDING PHYSICIAN STATEMENT I saw and evaluated the patient. I reviewed the resident's note and discussed the case with the resident. I agree with the resident's findings and plan as documented. SUBJECTIVE: Pt seen and examined in the ICU. Still with abdominal pain but slightly improved. No fevers or chills. No nausea or vomiting. OBJECTIVE: Last Vital Signs Temp Pulse Resp BP Pulse Ox 98.0 F 96 H 26 H 104/64 93 L 11/25/16 10:00 11/25/16 10:14 11/25/16 10:00 11/25/16 10:00 11/25/16 10:14 Intake & Output 11/22/16 11/23/16 11/24/16 11/25/16 23:59 23:59 23:59 23:59 Intake Total 450 1850 Output Total 1100 1075 Balance -650 775 Weight 187 lb 6.287 oz 187 lb 6.287 oz Gen: NAD in chair Heart: RRR Lung: decreased breath sounds at the bases Abd: distended, mild TTP RUQ, no rebound Ext: no edema CBC, BMP 11/25/16 05:00 11/25/16 05:00 Active Medications Acetaminophen (Ofirmev Injection -) 1,000 mg IVPB Q6H PRN PRN Reason: FEVER OR PAIN Stop: 11/25/16 15:35 Last Admin: 11/24/16 22:53 Dose: 1,000 mg Heparin Sodium (Porcine) (Heparin -) 5,000 unit SQ BID MATILDE Last Admin: 11/25/16 09:27 Dose: 5,000 unit Hydromorphone HCl (Dilaudid Injection -) 1 mg IVPB Q4H PRN PRN Reason: PAIN Stop: 11/25/16 17:45 Last Admin: 11/25/16 11:53 Dose: 1 mg Metronidazole (Flagyl 500mg Premixed Ivpb -) 100 mls @ 100 mls/hr IVPB Q8H-IV MATILDE Last Admin: 11/25/16 09:27 Dose: 100 mls/hr Pantoprazole Sodium 40 mg/ (Sodium Chloride) 100 mls @ 200 mls/hr IVPB BID MATILDE Last Admin: 11/25/16 09:27 Dose: 200 mls/hr Meropenem 1 gm/ Dextrose 100 mls @ 100 mls/hr IVPB Q8H-IV MATILDE PRN Reason: Protocol Last Admin: 11/25/16 09:02 Dose: 100 mls/hr Dextrose/Sodium Chloride (D5-Ns -) 1,000 mls @ 200 mls/hr IV ASDIR MATILDE Stop: 11/26/16 21:59 Last Admin: 11/25/16 09:05 Dose: 200 mls/hr Metoclopramide HCl (Reglan Injection -) 10 mg IVPB Q8H-IV MATILDE Last Admin: 11/25/16 09:26 Dose: 10 mg ASSESSMENT AND PLAN: Choledocholelithiasis s/p ERCP Acute Pancreatits/Duodenal Perforation Lactic Acidosis HTN Hyperlipidemia h/o CVA - continue antibiotics - IVF - monitor lytes - trend lipase, lactate - pain control - incentive spirometry - NPO - DVT prophylaxis - ICU monitoring critical care time spent in reviewing chart, evaluating pt and formulating plan 35 min
--- NOTE | 2016-11-25 13:18 | EKG ---
Test Reason : Blood Pressure : / mmHG Vent. Rate : 078 BPM Atrial Rate : 078 BPM P-R Int : 146 ms QRS Dur : 088 ms QT Int : 376 ms P-R-T Axes : 049 078 032 degrees QTc Int : 428 ms NORMAL SINUS RHYTHM NORMAL ECG WHEN COMPARED WITH ECG OF 24-APR-2011 20:27, NO SIGNIFICANT CHANGE WAS FOUND Confirmed by ISABELA RODRIGUEZ MD ([id number]) on 11/25/2016 1:18:15 PM Referred By: Confirmed By:ISABELA RODRIGUEZ MD
--- NOTE | 2016-11-25 16:39 | CON.ID ---
Consult Consult Specialty:: infectious diseases Reason for Consultation:: sepsis - History of Present Illness Chief Complaint: abd pain,sepsis History of Present Illness: 76 y/o male w/ PMH significant for HTN, HLD, CVA, BPH and depression. with h/o choledocholithiasis and underwent ERCP yesterday w/ stone extraction. Pt last night developed fever and chills wc was accompanied w/ abdominal discomfort and bloating. Pt denied any N/V and no diarrhea/constipation. 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 Cardio/Vascular: Yes: HTN, Hyperlipdemia Gastrointestinal: Yes: Other (Choledocholithiasis) Hepatobiliary: Yes: Cholelithiasis Renal/: Yes: BPH Psych: Yes: Depression - Past Surgical History Additional Surgical History: ERCP 11/23/16 - Alcohol/Substance Use Hx Alcohol Use: No - Smoking History Smoking history: Never smoked Have you smoked in the past 12 months: No Aproximately how many cigarettes per day: 0 If you are a former smoker, when did you quit?: MANY YRS AGO - Social History Usual Living Arrangement: With Spouse History of Recent Travel: No Home Medications - Allergies Allergies/Adverse Reactions: Allergies Allergy/AdvReac Type Severity Reaction Status Date / Time No Known Allergies Allergy Verified 11/24/16 11:09 - Home Medications Home Medications: Ambulatory Orders Aspirin [ASA -] 81 mg PO DAILY 10/13/11 Meclizine HCl [Antivert -] 25 mg PO TID #0 tablet 10/13/11 Tamsulosin HCl 0.4 mg PO DAILY 10/13/11 Cholecalciferol (Vitamin D3) [Vitamin D3 -] 1,000 unit PO DAILY 11/23/16 Nebivolol HCl [Bystolic] 2 mg PO DAILY 11/23/16 Pantoprazole Sodium [Protonix -] 20 mg PO DAILY 11/23/16 Paroxetine HCl [Paxil -] 20 mg PO DAILY 11/23/16 Ubidecarenone [Co Q-10] 300 mg PO DAILY 11/23/16 Losartan 50Mg/Hctz 12.5MG [Hyzaar -] 0.5 tab PO HS 11/24/16 Review of Systems - Review of Systems Constitutional: reports: Chills, Fever Eyes: reports: No Symptoms HENT: reports: No Symptoms Neck: reports: No Symptoms Cardiovascular: reports: No Symptoms Respiratory: reports: No Symptoms Gastrointestinal: reports: Abdominal Pain, Bloating Genitourinary: reports: No Symptoms Musculoskeletal: reports: No Symptoms Integumentary: reports: No Symptoms Neurological: reports: No Symptoms Endocrine: reports: No Symptoms Hematology/Lymphatic: reports: No Symptoms Psychiatric: reports: No Symptoms Physical Exam Vital Signs: Vital Signs Temperature 98.0 F 11/25/16 14:00 Pulse Rate 91 H 11/25/16 14:00 Respiratory Rate 19 11/25/16 14:00 Blood Pressure 110/69 11/25/16 14:00 O2 Sat by Pulse Oximetry (%) 93 L 11/25/16 10:14 Constitutional: Yes: Well Nourished, Calm, Mild Distress Cardiovascular: Yes: Regular Rate and Rhythm Respiratory: Yes: Regular, CTA Bilaterally Gastrointestinal: Yes: Distention, Tenderness, Other (absent bowel sounds) Musculoskeletal: Yes: WNL Extremities: Yes: WNL Neurological: Yes: Alert, Oriented Psychiatric: Yes: Alert, Oriented Labs: CBC, BMP 11/25/16 05:00 11/25/16 05:00 Imaging - Results Chest X-ray: Report Reviewed, Image Reviewed Cat Scan: Report Reviewed, Image Reviewed Ultrasound: Report Reviewed, Image Reviewed Assessment/Plan - Problems (1) Abdominal pain Code(s): R10.9 - UNSPECIFIED ABDOMINAL PAIN Qualifiers: Abdominal location: generalized Qualified Code(s): R10.84 - Generalized abdominal pain (2) Duodenal perforation Code(s): K63.1 - PERFORATION OF INTESTINE (NONTRAUMATIC) (3) Pancreatitis Code(s): K85.90 - ACUTE PANCREATITIS WITHOUT NECROSIS OR INFECTION, UNSP (4) HTN (hypertension) Code(s): I10 - ESSENTIAL (PRIMARY) HYPERTENSION (5) HLD (hyperlipidemia) Code(s): E78.5 - HYPERLIPIDEMIA, UNSPECIFIED (6) BPH (benign prostatic hyperplasia) Code(s): N40.0 - BENIGN PROSTATIC HYPERPLASIA WITHOUT LOWER URINRY TRACT SYMP plan very close monitoring continue abx hydration as per icu surgery on case cc time 45 min
[2016-11-25] MEDS ORDERED: PT OWN MED DRAWER 7, Y5N ONE ×2 (17:27→21:04)
--- NOTE | 2016-11-25 17:57 | PN ---
Progress Note, Physician History of Present Illness: s/p ERCP with postop pancreatitis Feeling better this evening - Current Medication List Current Medications: Active Medications Heparin Sodium (Porcine) (Heparin -) 5,000 unit SQ BID MATILDE Last Admin: 11/25/16 09:27 Dose: 5,000 unit Hydromorphone HCl (Dilaudid Injection -) 1 mg IVPB Q4H PRN PRN Reason: PAIN Stop: 11/25/16 17:45 Last Admin: 11/25/16 11:53 Dose: 1 mg Metronidazole (Flagyl 500mg Premixed Ivpb -) 100 mls @ 100 mls/hr IVPB Q8H-IV MATILDE Last Admin: 11/25/16 17:30 Dose: 100 mls/hr Pantoprazole Sodium 40 mg/ (Sodium Chloride) 100 mls @ 200 mls/hr IVPB BID MATILDE Last Admin: 11/25/16 09:27 Dose: 200 mls/hr Meropenem 1 gm/ Dextrose 100 mls @ 100 mls/hr IVPB Q8H-IV MATILDE PRN Reason: Protocol Last Admin: 11/25/16 17:30 Dose: 100 mls/hr Dextrose/Sodium Chloride (D5-Ns -) 1,000 mls @ 200 mls/hr IV ASDIR MATILDE Stop: 11/26/16 21:59 Last Admin: 11/25/16 09:05 Dose: 200 mls/hr Metoclopramide HCl (Reglan Injection -) 10 mg IVPB Q8H-IV MATILDE Last Admin: 11/25/16 17:30 Dose: 10 mg - Objective Vital Signs: Vital Signs Temperature 98.0 F 11/25/16 14:00 Pulse Rate 91 H 11/25/16 14:00 Respiratory Rate 19 11/25/16 14:00 Blood Pressure 110/69 11/25/16 14:00 O2 Sat by Pulse Oximetry (%) 93 L 11/25/16 10:14 Gastrointestinal: Yes: Other (exam improved, less distended and less tender) Labs: CBC, BMP 11/25/16 05:00 11/25/16 05:00 INR, PTT INR 1.67 (0.82-1.09) H 11/25/16 05:00 Problem List - Problems (1) Duodenal perforation Code(s): K63.1 - PERFORATION OF INTESTINE (NONTRAUMATIC) Assessment/Plan clinically improving decreasing WBC, tachycardia improved abdominal exam Continue current managment and close observation
--- NOTE | 2016-11-25 20:57 | PN ---
Progress Note, Physician History of Present Illness: Pt w/ some minimal abdominal pain Pt w/ episode of hypotension wc responded to IVF - Current Medication List Current Medications: Active Medications Heparin Sodium (Porcine) (Heparin -) 5,000 unit SQ BID MATILDE Last Admin: 11/25/16 09:27 Dose: 5,000 unit Metronidazole (Flagyl 500mg Premixed Ivpb -) 100 mls @ 100 mls/hr IVPB Q8H-IV MATILDE Last Admin: 11/25/16 17:30 Dose: 100 mls/hr Pantoprazole Sodium 40 mg/ (Sodium Chloride) 100 mls @ 200 mls/hr IVPB BID MATILDE Last Admin: 11/25/16 09:27 Dose: 200 mls/hr Meropenem 1 gm/ Dextrose 100 mls @ 100 mls/hr IVPB Q8H-IV MATILDE PRN Reason: Protocol Last Admin: 11/25/16 17:30 Dose: 100 mls/hr Dextrose/Sodium Chloride (D5-Ns -) 1,000 mls @ 200 mls/hr IV ASDIR MATILDE Stop: 11/26/16 21:59 Last Admin: 11/25/16 09:05 Dose: 200 mls/hr Metoclopramide HCl (Reglan Injection -) 10 mg IVPB Q8H-IV MATILDE Last Admin: 11/25/16 17:30 Dose: 10 mg - Objective Vital Signs: Vital Signs Temperature 97.8 F 11/25/16 20:00 Pulse Rate 117 H 11/25/16 20:00 Respiratory Rate 17 11/25/16 20:11 Blood Pressure 136/81 11/25/16 20:00 O2 Sat by Pulse Oximetry (%) 93 L 11/25/16 20:11 HENT: Yes: Other ((+) NGT) Neck: Yes: WNL, Supple Cardiovascular: Yes: WNL, Regular Rate and Rhythm Respiratory: Yes: WNL, Regular, CTA Bilaterally Gastrointestinal: Yes: WNL, Normal Bowel Sounds, Soft Extremities: Yes: WNL Edema: No Labs: CBC, BMP 11/25/16 05:00 11/25/16 05:00 INR, PTT INR 1.67 (0.82-1.09) H 11/25/16 05:00 Problem List - Problems (1) Abdominal pain Assessment/Plan: Due to duodenal perforation/pancreatitis No need surgical intervention at this time unless clinical condition changes Cont IV antibxs/IVF Cultures remain negative WBC decreased Code(s): R10.9 - UNSPECIFIED ABDOMINAL PAIN Qualifiers: Abdominal location: generalized Qualified Code(s): R10.84 - Generalized abdominal pain (2) Duodenal perforation Code(s): K63.1 - PERFORATION OF INTESTINE (NONTRAUMATIC) (3) Pancreatitis Assessment/Plan: Cont IVF Cont IV antibxs Monitor labs Lipase has decreased Code(s): K85.90 - ACUTE PANCREATITIS WITHOUT NECROSIS OR INFECTION, UNSP (4) HTN (hypertension) Assessment/Plan: Monitor BP Antihypertensives on hold while pt is NPO Code(s): I10 - ESSENTIAL (PRIMARY) HYPERTENSION (5) HLD (hyperlipidemia) Code(s): E78.5 - HYPERLIPIDEMIA, UNSPECIFIED (6) BPH (benign prostatic hyperplasia) Code(s): N40.0 - BENIGN PROSTATIC HYPERPLASIA WITHOUT LOWER URINRY TRACT SYMP
[2016-11-26] MEDS: METRONIDAZOLE 500 MG PREMIXED 100 ML IVPB SCH ×3 (02:00→17:27)
[2016-11-26] MEDS: METOCLOPRAMIDE HCL INJECTION 10 MG/2 ML VIAL IVPB SCH ×3 (02:23→17:28)
[2016-11-26] MEDS: MEROPENEM 1 GM in DEXTROSE 5%-WATER - 100 ML IVPB SCH ×3 (02:24→17:27)
[2016-11-26] MEDS ORDERED: PT OWN MED DRAWER 7, Y5N ONE ×4 (03:22→22:32)
[2016-11-26] MEDS: DEXTROSE 5%-NORMAL SALINE 1,000 ML IV SCH ×2 (03:52→10:01)
[2016-11-26 06:28] LABS: MCH 29.6 pg (25.7-33.7); MCHC 33.2 g/dl (32.0-35.9); MEAN CELL VOLUME 89.2 fl (80-96); MEAN PLT VOLUME 9.1 fl (7.5-11.1); PLATELET COUNT 229 K/MM3 (134-434); RDW 15.4 % (11.9-15.9); WHITE BLOOD COUNT 16.9 K/mm3 (4.0-10.0)
[2016-11-26 06:47] LABS: ALBUMIN 2.1 g/dl (3.4-5.0); ALK PHOS 41 U/L (45-117); ANION GAP 8 (8-16); BILIRUBIN,TOTAL 0.5 mg/dL (0.2-1.0); CALCIUM 7.5 mg/dL (8.5-10.1); CO2 22 mmol/L (21-32); CREATININE 0.8 mg/dL (0.7-1.3); GLUCOSE,RANDOM 135 mg/dL (74-106); MAGNESIUM 1.8 mg/dL (1.8-2.4); PHOSPHOROUS 1.6 mg/dL (2.5-4.9); SGOT/AST 12 U/L (15-37); SGPT/ALT 10 U/L (12-78); TOT PROT 5.3 g/dl (6.4-8.2)
[2016-11-26] MEDS ORDERED: SODIUM PHOSPHATE - 20 MM in DEXTROSE 5%-WATER - 250 ML IVPB ONE (07:07)
--- NOTE | 2016-11-26 07:08 | PN ---
Physical Exam: SUBJECTIVE: Patient seen and examined by me this AM - Pt doing well, no major complaints overnight. One BM, loose, no blood/melena. Abd pain continues to improve. Denies fevers, chills, ALONSO, N/V, BL LE edema, palpitations. Endorses mild non-productive cough and difficulty taking full breath due to abdominal distension/pain. - NG tube found partially removed this AM. Nursing repositioned. Continuous to drain bilious fluid. - WBC continues to downtrend (20.8 -> 16.9) - Pt tachy overnight to 110s. BPs stable w/ MAPs >65. Afebrile - Blood, urine cx's pending - Hypophos this AM. Repleted 20meq IV Na-phos OBJECTIVE: Vital Signs Intake & Output 11/23/16 11/24/16 11/25/16 11/26/16 23:59 23:59 23:59 23:59 Intake Total 450 5750 Output Total 1100 1525 Balance -650 4225 Weight 85 kg 85 kg Period Temp Pulse Resp BP Sys/Weber Pulse Ox Last 24 Hr 97.8 F-98.9 F 91-117 17-28 91-145/52-81 93-97 GENERAL: The patient is awake, alert, and fully oriented, in no acute distress. Sitting in chair. HEAD: Normal with no signs of trauma. EYES: PERRL, extraocular movements intact, mild scleral interus, conjunctiva clear. No ptosis. ENT: Ears normal, nares patent, oropharynx clear with posterior palatal petechiae, moist mucous membranes. NGT in place, draining bilious fluid NECK: Trachea midline, full range of motion, supple. LUNGS: Breath decreased at bases. No wheezes, no crackles, no accessory muscle use. HEART: Regular rate and rhythm, S1, S2 without murmur, rub or gallop. ABDOMEN: Rigid abdomen, tender to palpation in RUQ, - rebound, + murphys, No organomegaly. EXTREMITIES: 2+ pulses, warm, well-perfused, no edema. NEUROLOGICAL: Cranial nerves II through XII grossly intact. Normal speech, gait not observed. PSYCH: Normal mood, normal affect. SKIN: Trace jaundice Laboratory Results - last 24 hr CBCD WBC 16.9 K/mm3 (4.0-10.0) H 11/26/16 05:15 RBC 4.88 M/mm3 (4.00-5.60) 11/26/16 05:15 Hgb 14.4 GM/dL (11.7-16.9) 11/26/16 05:15 Hct 43.5 % (35.4-49) 11/26/16 05:15 MCV 89.2 fl (80-96) 11/26/16 05:15 MCHC 33.2 g/dl (32.0-35.9) 11/26/16 05:15 RDW 15.4 % (11.9-15.9) 11/26/16 05:15 Plt Count 229 K/MM3 (134-434) 11/26/16 05:15 MPV 9.1 fl (7.5-11.1) 11/26/16 05:15 CMP Sodium 139 mmol/L (136-145) 11/26/16 05:15 Potassium 4.0 mmol/L (3.5-5.1) 11/26/16 05:15 Chloride 109 mmol/L (98-107) H 11/26/16 05:15 Carbon Dioxide 22 mmol/L (21-32) 11/26/16 05:15 Anion Gap 8 (8-16) 11/26/16 05:15 BUN 23 mg/dL (7-18) H 11/26/16 05:15 Creatinine 0.8 mg/dL (0.7-1.3) D 11/26/16 05:15 Creat Clearance w eGFR > 60 (>60) 11/26/16 05:15 Calcium 7.5 mg/dL (8.5-10.1) L 11/26/16 05:15 Total Bilirubin 0.5 mg/dL (0.2-1.0) D 11/26/16 05:15 AST 12 U/L (15-37) L 11/26/16 05:15 ALT 10 U/L (12-78) L D 11/26/16 05:15 Alkaline Phosphatase 41 U/L (45-117) L 11/26/16 05:15 Total Protein 5.3 g/dl (6.4-8.2) L 11/26/16 05:15 Albumin 2.1 g/dl (3.4-5.0) L D 11/26/16 05:15 11/25/16 11/25/16 11/26/16 05:00 14:45 05:15 WBC 16.9 H RBC 4.88 Hgb 14.4 Hct 43.5 MCV 89.2 MCH 29.6 MCHC 33.2 RDW 15.4 Plt Count 229 MPV 9.1 Sodium Potassium Chloride Carbon Dioxide Anion Gap BUN Creatinine Creat Clearance w eGFR Random Glucose Calcium Phosphorus Magnesium Total Bilirubin AST ALT Alkaline Phosphatase Total Protein Albumin Lipase 5920 H 3739 H 11/26/16 05:15 WBC RBC Hgb Hct MCV MCH MCHC RDW Plt Count MPV Sodium 139 Potassium 4.0 Chloride 109 H Carbon Dioxide 22 Anion Gap 8 BUN 23 H Creatinine 0.8 D Creat Clearance w eGFR > 60 Random Glucose 135 H Calcium 7.5 L Phosphorus 1.6 L Magnesium 1.8 Total Bilirubin 0.5 D AST 12 L ALT 10 L D Alkaline Phosphatase 41 L Total Protein 5.3 L Albumin 2.1 L D Lipase Active Medications Generic Name Dose Route Start Last Admin Trade Name Freq PRN Reason Stop Dose Admin Heparin Sodium (Porcine) 5,000 unit 11/25/16 10:00 11/25/16 21:05 Heparin - SQ 5,000 unit BID MATILDE Administration Metronidazole 100 mls @ 100 mls/hr 11/24/16 18:00 11/26/16 02:00 Flagyl 500mg Premixed Ivpb - IVPB 100 mls/hr Q8H-IV MATILDE Administration Pantoprazole Sodium 40 mg/ 100 mls @ 200 mls/hr 11/24/16 22:00 11/25/16 21:05 Sodium Chloride IVPB 200 mls/hr BID MATILDE Administration Meropenem 1 gm/ Dextrose 100 mls @ 100 mls/hr 11/25/16 02:00 11/26/16 02:24 IVPB 100 mls/hr Q8H-IV MATILDE Administration Protocol Dextrose/Sodium Chloride 1,000 mls @ 200 mls/hr 11/25/16 08:17 11/26/16 03:52 D5-Ns - IV 11/26/16 21:59 200 mls/hr ASDIR MATILDE Administration Sodium Phosphate 20 mm/ 256.6667 mls @ 62.5 mls/hr 11/26/16 07:07 Dextrose IVPB 11/26/16 11:13 ONCE ONE Metoclopramide HCl 10 mg 11/24/16 18:00 11/26/16 02:23 Reglan Injection - IVPB 10 mg Q8H-IV MATILDE Administration Micro: 11/24/16 11:55 Blood Culture - Preliminary Blood - Peripheral Venous NO GROWTH OBTAINED AFTER 24 HOURS, INCUBATION TO CONTINUE FOR 4 DAYS. 11/24/16 11:55 Blood Culture - Preliminary Blood - Peripheral Venous NO GROWTH OBTAINED AFTER 24 HOURS, INCUBATION TO CONTINUE FOR 4 DAYS. 11/24/16 11:44 Urine Culture - Final Urine - Urine Clean Catch NO GROWTH OBTAINED Imaging: CT abdomen/pelvis (11/24) - 1. Moderate volume of extraluminal gas in the right upper quadrant, predominantly centered around the duodenum. Marked wall thickening in the second and third portions of the duodenum with submucosal edema and pneumatosis along the anterior wall, consistent with duodenitis. The constellation of findings are most likely attributed to duodenal perforation. Surgical evaluation is recommended. 2. Pneumobilia compatible with provided clinical history of recent ERCP. Heterogeneous enhancement of the pancreatic head and uncinate process is compatible with pancreatitis. Please correlate with pancreatic enzymes. 3. Peripancreatic and periduodenal free fluid/phlegmon tracking into the pelvis along Gerota's fascia and paracolic gutter on the right. No drainable collection at this time. 4. Marked circumferential wall thickening of the ascending colon compatible with colitis is likely reactive. 5. Cholelithiasis. No CT evidence of acute cholecystitis. Abdominal U/S (11/24) - 1. Cholelithiasis with positive Ramires's sign. Acute cholecystitis cannot be excluded and a follow- up HIDA scan is recommended. 2. Diffuse fatty infiltration of the liver. Limited study as described above. ASSESSMENT/PLAN: 76 yo male w/ pmh of CVA, HTN, BPH, choledocholelithiasis s/p ERCP on 11/23, who now presents with fever, chills, abd pain and distension beginning the night of POD0. CT scan s/f duodenal perforation and pancreatitis, with elevated WBC count of 28k, lipase ~8500. Pt continues to improve clinically, w/ downtrending lipase, downtrending WBC (16.9 today) and decreased abdominal pain. Continue w/ conservative management with NPO, NG tube, IVF and abx coverage for gut edmond. General surgery, ID following. Plan for transfer to med-surg tomorrow if continued clinical improvement. #Neuro - Tylenol 1g IV q4h PRN for pain control #Pulm - O2 2L NC PRN. Titrate to >94% - Incentive spirometer #ID - f/u all cultures. Blood, urine pending - Trend WBC, fever curve. WBC continues to downtrend 16.7 today. - Continue coverage w/ flagyl, meropenem. Day 2 of course - trend lactate. AM lactate 2.3 - ID recs appreciated #Renal - D5NS decreased from 200 to 75cc/hr - Strict I&Os. Monitor UOP - Daily BMPs, trend BUN/Cr - Monitor lytes #Heme - Trend H/H. Transfuse at <7 #GI - PM CT ab/pelvis today per Dr. Sharma. F/u results - trend lipase. AM lipase 3739 - Monitor NGT output - General surgery following. Conservative management - Reglan 10mg IV q8h #FEN -Fluids: D5NS 75cc/hr -Electrolytes: Daily BMPs, Trend BUN/Cr -Nutrition: NPO #PPX -SubQ Heparin for DVT ppx -PPI for GI ppx #Dispo - Dispo to ICU for further monitoring/management, w/ plan for transfer to med-surg tomorrow if continued improvement. Nik Cody, PGY1 Plan discussed with attending, Dr. Nunez Visit type - Emergency Visit Emergency Visit: No - New Patient This patient is new to me today: No - Critical Care Critical Care patient: Yes Total Critical Care Time (in minutes): 25
[2016-11-26] MEDS: HEPARIN NA (PORCINE) 5,000 UNITS/ML 1ML VIAL SQ SCH ×2 (10:01→22:51)
[2016-11-26] MEDS: PANTOPRAZOLE SODIUM 40 MG in SODIUM CHLORIDE 100 ML IVPB SCH ×2 (10:18→22:50)
[2016-11-26] MEDS ORDERED: DEXTROSE 5%-NORMAL SALINE 1,000 ML IV SCH (10:27)
--- NOTE | 2016-11-26 12:49 | PN ---
Teaching Attending Note Name of Resident: Nik Cody ATTENDING PHYSICIAN STATEMENT I saw and evaluated the patient. I reviewed the resident's note and discussed the case with the resident. I agree with the resident's findings and plan as documented. SUBJECTIVE: Patient seen and examined in the ICU. Abdominal pain is improving. No fevers or chills. No nausea or vomiting. NGT to LWS -[> Bilious. OBJECTIVE: Intake & Output 11/23/16 11/24/16 11/25/16 11/26/16 23:59 23:59 23:59 23:59 Intake Total 450 5750 1200 Output Total 1100 1975 700 Balance -650 3775 500 Weight 187 lb 6.287 oz 187 lb 6.287 oz 190 lb 4 oz Last Vital Signs Temp Pulse Resp BP Pulse Ox 97.5 F L 94 H 20 146/95 96 11/26/16 10:00 11/26/16 10:07 11/26/16 10:00 11/26/16 10:00 11/26/16 10:07 Active Medications Heparin Sodium (Porcine) (Heparin -) 5,000 unit SQ BID MATILDE Last Admin: 11/26/16 10:01 Dose: 5,000 unit Metronidazole (Flagyl 500mg Premixed Ivpb -) 100 mls @ 100 mls/hr IVPB Q8H-IV MATILDE Last Admin: 11/26/16 10:01 Dose: 100 mls/hr Pantoprazole Sodium 40 mg/ (Sodium Chloride) 100 mls @ 200 mls/hr IVPB BID MATILDE Last Admin: 11/26/16 10:18 Dose: 200 mls/hr Meropenem 1 gm/ Dextrose 100 mls @ 100 mls/hr IVPB Q8H-IV MATILDE PRN Reason: Protocol Last Admin: 11/26/16 10:18 Dose: 100 mls/hr Dextrose/Sodium Chloride (D5-Ns -) 1,000 mls @ 75 mls/hr IV ASDIR [facility] Stop: 11/27/16 21:36 Metoclopramide HCl (Reglan Injection -) 10 mg IVPB Q8H-IV MATILDE Last Admin: 11/26/16 10:02 Dose: 10 mg Gen: NAD in chair Heart: RRR Lung: Decreased breath sounds at the bases Abd: distended, minimal TTP RUQ, no rebound Ext: no edema Laboratory Results - last 24 hr 11/25/16 11/25/16 11/26/16 05:00 14:45 05:15 WBC 16.9 H RBC 4.88 Hgb 14.4 Hct 43.5 MCV 89.2 MCH 29.6 MCHC 33.2 RDW 15.4 Plt Count 229 MPV 9.1 Sodium Potassium Chloride Carbon Dioxide Anion Gap BUN Creatinine Creat Clearance w eGFR Random Glucose Lactic Acid Calcium Phosphorus Magnesium Total Bilirubin AST ALT Alkaline Phosphatase Total Protein Albumin Lipase 5920 H 3739 H 11/26/16 11/26/16 05:15 05:15 WBC RBC Hgb Hct MCV MCH MCHC RDW Plt Count MPV Sodium 139 Potassium 4.0 Chloride 109 H Carbon Dioxide 22 Anion Gap 8 BUN 23 H Creatinine 0.8 D Creat Clearance w eGFR > 60 Random Glucose 135 H Lactic Acid 2.3 H* Calcium 7.5 L Phosphorus 1.6 L Magnesium 1.8 Total Bilirubin 0.5 D AST 12 L ALT 10 L D Alkaline Phosphatase 41 L Total Protein 5.3 L Albumin 2.1 L D Lipase ASSESSMENT AND PLAN: Choledocholelithiasis S/P ERCP Acute Pancreatits/Duodenal Perforation Lactic Acidosis HTN Hyperlipidemia h/o CVA - ABX per ID - Decrease IVF - Monitor lytes - trend lipase, lactate - pain control - incentive spirometry - NPO - DVT prophylaxis - ICU monitoring Dr Nunez Critical care time spent in reviewing chart, evaluating pt and formulating plan 35 min.
--- NOTE | 2016-11-26 17:19 | PN ---
Progress Note, Physician History of Present Illness: patient improving still with abd distension and tenderness wbc coming down ng tube still draining - Current Medication List Current Medications: Active Medications Heparin Sodium (Porcine) (Heparin -) 5,000 unit SQ BID MATILDE Last Admin: 11/26/16 10:01 Dose: 5,000 unit Metronidazole (Flagyl 500mg Premixed Ivpb -) 100 mls @ 100 mls/hr IVPB Q8H-IV MATILDE Last Admin: 11/26/16 10:01 Dose: 100 mls/hr Pantoprazole Sodium 40 mg/ (Sodium Chloride) 100 mls @ 200 mls/hr IVPB BID MATILDE Last Admin: 11/26/16 10:18 Dose: 200 mls/hr Meropenem 1 gm/ Dextrose 100 mls @ 100 mls/hr IVPB Q8H-IV MATILDE PRN Reason: Protocol Last Admin: 11/26/16 10:18 Dose: 100 mls/hr Dextrose/Sodium Chloride (D5-Ns -) 1,000 mls @ 75 mls/hr IV ASDIR MATILDE Stop: 11/27/16 21:36 Metoclopramide HCl (Reglan Injection -) 10 mg IVPB Q8H-IV MATILDE Last Admin: 11/26/16 10:02 Dose: 10 mg - Objective Vital Signs: Vital Signs Temperature 99.2 F 11/26/16 14:00 Pulse Rate 100 H 11/26/16 14:00 Respiratory Rate 20 11/26/16 14:00 Blood Pressure 130/61 11/26/16 14:00 O2 Sat by Pulse Oximetry (%) 96 11/26/16 10:07 Constitutional: Yes: Calm, Mild Distress Cardiovascular: Yes: Regular Rate and Rhythm Respiratory: Yes: Regular, CTA Bilaterally Gastrointestinal: Yes: Tenderness, Other (ng tube in place) Musculoskeletal: Yes: WNL Extremities: Yes: WNL Neurological: Yes: Alert, Oriented Psychiatric: Yes: Alert, Oriented Labs: CBC, BMP 11/26/16 05:15 11/26/16 05:15 INR, PTT INR 1.67 (0.82-1.09) H 11/25/16 05:00 - ....Imaging Cat Scan: Report Reviewed, Image Reviewed Assessment/Plan - Problems (1) Abdominal pain Code(s): R10.9 - UNSPECIFIED ABDOMINAL PAIN Qualifiers: Abdominal location: generalized Qualified Code(s): R10.84 - Generalized abdominal pain (2) Duodenal perforation Code(s): K63.1 - PERFORATION OF INTESTINE (NONTRAUMATIC) (3) Pancreatitis Code(s): K85.90 - ACUTE PANCREATITIS WITHOUT NECROSIS OR INFECTION, UNSP (4) HTN (hypertension) Code(s): I10 - ESSENTIAL (PRIMARY) HYPERTENSION (5) HLD (hyperlipidemia) Code(s): E78.5 - HYPERLIPIDEMIA, UNSPECIFIED (6) BPH (benign prostatic hyperplasia) Code(s): N40.0 - BENIGN PROSTATIC HYPERPLASIA WITHOUT LOWER URINRY TRACT SYMP plan very close monitoring continue abx hydration as per icu surgery on case cc time 40 min
--- NOTE | 2016-11-26 18:17 | PN ---
GI Progress Note Subjective: patient continued to have low grade temps.ct showed no significant change from previous [id number], no pancreatic necrosis noted still draining copius amout of bile, abdominal jose m is 4/10, good bowel movement x 2 less bloating and distention - Objective Vital Signs: Vital Signs Temperature 99.3 F 11/26/16 17:40 Pulse Rate 94 H 11/26/16 17:00 Respiratory Rate 18 11/26/16 17:00 Blood Pressure 144/65 11/26/16 17:00 O2 Sat by Pulse Oximetry (%) 96 11/26/16 10:07 Constitutional: Well Nourished Eyes: Yes: Conjunctiva Clear HENT: Yes: Normocephalic Neck: Yes: Trachea Midline Cardiovascular: Yes: Regular Rate and Rhythm ...Auscultate: No: No Bowel Sounds ...Palpate: Yes: Soft. No: Guarding, Hepatomegaly, Pulsatile Mass, Splenomegaly , Tenderness, Tenderness, Epigastium Labs: CBC, BMP 11/26/16 05:15 11/26/16 05:15 INR, PTT INR 1.67 (0.82-1.09) H 11/25/16 05:00 Problem List - Problems (1) Duodenal perforation Code(s): K63.1 - PERFORATION OF INTESTINE (NONTRAUMATIC) (2) Pancreatitis, acute Assessment/Plan: post ERCp pancreatitis R> continue IV hydration continue antibiotics NGT 400 cc Code(s): K85.90 - ACUTE PANCREATITIS WITHOUT NECROSIS OR INFECTION, UNSP
--- NOTE | 2016-11-26 20:00 | PN ---
Progress Note, Physician History of Present Illness: Pt still w/ NGT w/ bilous drainage - Current Medication List Current Medications: Active Medications Heparin Sodium (Porcine) (Heparin -) 5,000 unit SQ BID MATILDE Last Admin: 11/26/16 10:01 Dose: 5,000 unit Metronidazole (Flagyl 500mg Premixed Ivpb -) 100 mls @ 100 mls/hr IVPB Q8H-IV MATILDE Last Admin: 11/26/16 17:27 Dose: 100 mls/hr Pantoprazole Sodium 40 mg/ (Sodium Chloride) 100 mls @ 200 mls/hr IVPB BID MATILDE Last Admin: 11/26/16 10:18 Dose: 200 mls/hr Meropenem 1 gm/ Dextrose 100 mls @ 100 mls/hr IVPB Q8H-IV MATILDE PRN Reason: Protocol Last Admin: 11/26/16 17:27 Dose: 100 mls/hr Dextrose/Sodium Chloride (D5-Ns -) 1,000 mls @ 75 mls/hr IV ASDIR MATILDE Stop: 11/27/16 21:36 Last Admin: 11/26/16 13:00 Dose: 75 mls/hr Metoclopramide HCl (Reglan Injection -) 10 mg IVPB Q8H-IV MATILDE Last Admin: 11/26/16 17:28 Dose: 10 mg - Objective Vital Signs: Vital Signs Temperature 99.3 F 11/26/16 17:40 Pulse Rate 98 H 11/26/16 19:00 Respiratory Rate 20 11/26/16 19:00 Blood Pressure 143/71 11/26/16 19:00 O2 Sat by Pulse Oximetry (%) 96 11/26/16 10:07 Constitutional: Yes: No Distress HENT: Yes: WNL, Other ((+) NGT) Cardiovascular: Yes: WNL, Regular Rate and Rhythm Respiratory: Yes: Diminished Gastrointestinal: Yes: Normal Bowel Sounds, Soft, Distention Extremities: Yes: WNL Edema: No Labs: CBC, BMP 11/26/16 05:15 11/26/16 05:15 INR, PTT INR 1.67 (0.82-1.09) H 11/25/16 05:00 Problem List - Problems (1) Abdominal pain Assessment/Plan: Due to duodenal perforation/pancreatitis ERCP pancreatitis Cont IV antibxs/IVF Cultures remain negative WBC decreased Code(s): R10.9 - UNSPECIFIED ABDOMINAL PAIN Qualifiers: Abdominal location: generalized Qualified Code(s): R10.84 - Generalized abdominal pain (2) Duodenal perforation Assessment/Plan: Cont NGT As per surgery/GI Cont IV antibxs Cultures remain negative No change on repeat ct scan abd Code(s): K63.1 - PERFORATION OF INTESTINE (NONTRAUMATIC) (3) Pancreatitis Assessment/Plan: Cont IVF Cont IV antibxs Monitor labs CT scan abd did not show any change in pancreatitis Code(s): K85.90 - ACUTE PANCREATITIS WITHOUT NECROSIS OR INFECTION, UNSP (4) HTN (hypertension) Assessment/Plan: Monitor BP Antihypertensives on hold while pt is NPO Code(s): I10 - ESSENTIAL (PRIMARY) HYPERTENSION (5) HLD (hyperlipidemia) Code(s): E78.5 - HYPERLIPIDEMIA, UNSPECIFIED (6) BPH (benign prostatic hyperplasia) Code(s): N40.0 - BENIGN PROSTATIC HYPERPLASIA WITHOUT LOWER URINRY TRACT SYMP
[2016-11-26 22:02] LABS: MCH 29.5 pg (25.7-33.7); MCHC 33.4 g/dl (32.0-35.9); MEAN CELL VOLUME 88.3 fl (80-96); MEAN PLT VOLUME 9.2 fl (7.5-11.1); PLATELET COUNT 233 K/MM3 (134-434); RDW 15.7 % (11.9-15.9); WHITE BLOOD COUNT 17.6 K/mm3 (4.0-10.0)
[2016-11-26 23:01] LABS: PLATELET ESTIMATE ADEQUATE (NORMAL); REACTIVE LYMPHOCYTES 1 % (0-80); TOTAL CELLS COUNTED 100
[2016-11-27] MEDS ORDERED: ACETAMINOPHEN 1000 MG/100 ML VIAL (NON FORMULARY) IVPB ONE (00:02)
[2016-11-27] MEDS: MEROPENEM 1 GM in DEXTROSE 5%-WATER - 100 ML IVPB SCH ×3 (02:00→17:43)
[2016-11-27] MEDS: METRONIDAZOLE 500 MG PREMIXED 100 ML IVPB SCH ×3 (02:55→17:42)
[2016-11-27] MEDS ORDERED: PT OWN MED DRAWER 7, Y5N ONE ×4 (03:49→22:38)
[2016-11-27] MEDS: METOCLOPRAMIDE HCL INJECTION 10 MG/2 ML VIAL IVPB SCH ×3 (03:50→17:43)
[2016-11-27 06:12] LABS: MCH 29.6 pg (25.7-33.7); MCHC 33.2 g/dl (32.0-35.9); MEAN PLT VOLUME 9.3 fl (7.5-11.1); PLATELET COUNT 240 K/MM3 (134-434); RDW 15.6 % (11.9-15.9); WHITE BLOOD COUNT 15.6 K/mm3 (4.0-10.0)
[2016-11-27 06:38] LABS: ALBUMIN 2.1 g/dl (3.4-5.0); ALK PHOS 41 U/L (45-117); ANION GAP 6 (8-16); BILIRUBIN,TOTAL 0.5 mg/dL (0.2-1.0); CALCIUM 7.8 mg/dL (8.5-10.1); CO2 27 mmol/L (21-32); CREATININE 0.8 mg/dL (0.7-1.3); GLUCOSE,RANDOM 168 mg/dL (74-106); MAGNESIUM 2.1 mg/dL (1.8-2.4); PHOSPHOROUS 1.3 mg/dL (2.5-4.9); SGOT/AST 15 U/L (15-37); SGPT/ALT 9 U/L (12-78); TOT PROT 5.2 g/dl (6.4-8.2)
--- NOTE | 2016-11-27 09:24 | PN ---
Progress Note, Physician History of Present Illness: feeling better BMs X3 NGT output 300/12hr - Current Medication List Current Medications: Active Medications Heparin Sodium (Porcine) (Heparin -) 5,000 unit SQ BID MATILDE Last Admin: 11/26/16 22:51 Dose: 5,000 unit Metronidazole (Flagyl 500mg Premixed Ivpb -) 100 mls @ 100 mls/hr IVPB Q8H-IV MATILDE Last Admin: 11/27/16 02:55 Dose: 100 mls/hr Pantoprazole Sodium 40 mg/ (Sodium Chloride) 100 mls @ 200 mls/hr IVPB BID MATILDE Last Admin: 11/26/16 22:50 Dose: 200 mls/hr Meropenem 1 gm/ Dextrose 100 mls @ 100 mls/hr IVPB Q8H-IV MATILDE PRN Reason: Protocol Last Admin: 11/27/16 02:00 Dose: 100 mls/hr Dextrose/Sodium Chloride (D5-Ns -) 1,000 mls @ 75 mls/hr IV ASDIR MATILDE Stop: 11/27/16 21:36 Last Admin: 11/26/16 13:00 Dose: 75 mls/hr Metoclopramide HCl (Reglan Injection -) 10 mg IVPB Q8H-IV MATILDE Last Admin: 11/27/16 03:50 Dose: 10 mg - Objective Vital Signs: Vital Signs Temperature 98.1 F 11/27/16 06:00 Pulse Rate 70 11/27/16 08:00 Respiratory Rate 21 11/27/16 08:26 Blood Pressure 160/81 11/27/16 08:00 O2 Sat by Pulse Oximetry (%) 94 L 11/27/16 08:26 Gastrointestinal: Yes: Other (less distended , decreased tenderness) Labs: CBC, BMP 11/27/16 05:00 11/27/16 05:00 INR, PTT INR 1.67 (0.82-1.09) H 11/25/16 05:00 Problem List - Problems (1) Duodenal perforation Code(s): K63.1 - PERFORATION OF INTESTINE (NONTRAUMATIC) Assessment/Plan clinically improving decreasing WBC, tachycardia improved abdominal exam Continue current managment and close observation DC NGT but keep NPO
--- NOTE | 2016-11-27 09:53 | PN ---
Progress Note (short form) - Note Progress Note: Patient seen and examined in the ICU. Abdominal pain is improving. (+) BM x 3. NGT = 300cc output. No fevers or chills. No nausea or vomiting. Surgical follow up noted. OBJECTIVE: Intake & Output 11/24/16 11/25/16 11/26/16 11/27/16 23:59 23:59 23:59 23:59 Intake Total 450 5750 4521 1100 Output Total 1100 1975 1450 900 Balance -650 3775 3071 200 Weight 187 lb 6.287 oz 187 lb 6.287 oz 190 lb 4 oz 194 lb Last Vital Signs Temp Pulse Resp BP Pulse Ox 98.1 F 70 21 160/81 94 L 11/27/16 06:00 11/27/16 08:00 11/27/16 08:26 11/27/16 08:00 11/27/16 08:26 Active Medications Heparin Sodium (Porcine) (Heparin -) 5,000 unit SQ BID MATILDE Last Admin: 11/26/16 22:51 Dose: 5,000 unit Metronidazole (Flagyl 500mg Premixed Ivpb -) 100 mls @ 100 mls/hr IVPB Q8H-IV MATILDE Last Admin: 11/27/16 02:55 Dose: 100 mls/hr Pantoprazole Sodium 40 mg/ (Sodium Chloride) 100 mls @ 200 mls/hr IVPB BID MATILDE Last Admin: 11/26/16 22:50 Dose: 200 mls/hr Meropenem 1 gm/ Dextrose 100 mls @ 100 mls/hr IVPB Q8H-IV MATILDE PRN Reason: Protocol Last Admin: 11/27/16 02:00 Dose: 100 mls/hr Dextrose/Sodium Chloride (D5-Ns -) 1,000 mls @ 75 mls/hr IV ASDIR MATILDE Stop: 11/27/16 21:36 Last Admin: 11/26/16 13:00 Dose: 75 mls/hr Metoclopramide HCl (Reglan Injection -) 10 mg IVPB Q8H-IV MATILDE Last Admin: 11/27/16 03:50 Dose: 10 mg Gen: NAD in chair Heart: RRR Lung: Decreased breath sounds at the bases Abd: distended, minimal TTP RUQ, no rebound Ext: no edema Laboratory Results - last 24 hr 11/26/16 11/26/16 11/27/16 17:20 21:59 05:00 WBC 17.6 H 15.6 H RBC 4.57 4.37 Hgb 13.5 12.9 Hct 40.4 38.9 MCV 88.3 89.0 MCH 29.5 29.6 MCHC 33.4 33.2 RDW 15.7 15.6 Plt Count 233 240 MPV 9.2 9.3 Total Counted 100 Neutrophils % No Result Required. Neutrophils % (Manual) 79 Band Neuts % (Manual) 5 D Lymphocytes % No Result Required. Lymphocytes % (Manual) 12 D Monocytes % (Manual) 4 Other Cell Type Platelet Estimate Adequate Sodium Potassium Chloride Carbon Dioxide Anion Gap BUN Creatinine Creat Clearance w eGFR Random Glucose Lactic Acid 1.9 Calcium Phosphorus Magnesium Total Bilirubin AST ALT Alkaline Phosphatase Total Protein Albumin 11/27/16 05:00 WBC RBC Hgb Hct MCV MCH MCHC RDW Plt Count MPV Total Counted Neutrophils % Neutrophils % (Manual) Band Neuts % (Manual) Lymphocytes % Lymphocytes % (Manual) Monocytes % (Manual) Other Cell Type Platelet Estimate Sodium 141 Potassium 3.8 Chloride 108 H Carbon Dioxide 27 D Anion Gap 6 L BUN 20 H Creatinine 0.8 Creat Clearance w eGFR > 60 Random Glucose 168 H D Lactic Acid Calcium 7.8 L Phosphorus 1.3 L Magnesium 2.1 Total Bilirubin 0.5 AST 15 D ALT 9 L Alkaline Phosphatase 41 L Total Protein 5.2 L Albumin 2.1 L ASSESSMENT AND PLAN: Choledocholelithiasis S/P ERCP Acute Pancreatits/Duodenal Perforation Lactic Acidosis HTN Hyperlipidemia h/o CVA - ABX per ID - Minimize IVF - Monitor lytes - pain control - incentive spirometry - NPO - DVT prophylaxis - ICU monitoring Dr Nunez Critical care time spent in reviewing chart, evaluating pt and formulating plan 35 min.
[2016-11-27] MEDS ORDERED: morphine CARPU-JECT 2 MG/1 ML DISP.SYRIN IVPUSH PRN (09:55)
[2016-11-27] MEDS: PANTOPRAZOLE SODIUM 40 MG in SODIUM CHLORIDE 100 ML IVPB SCH ×2 (10:06→22:39)
[2016-11-27] MEDS: HEPARIN NA (PORCINE) 5,000 UNITS/ML 1ML VIAL SQ SCH ×2 (10:06→22:39)
[2016-11-27] MEDS ORDERED: POTASSIUM PHOSPHATE 30 MM in DEXTROSE 5%-WATER - 250 ML IVPB ONE (11:00)
--- NOTE | 2016-11-27 15:52 | PN ---
GI Progress Note Subjective: Patient states he is feeling much better Denies pain - Objective Vital Signs: Vital Signs Temperature 98.8 F 11/27/16 14:00 Pulse Rate 80 11/27/16 14:00 Respiratory Rate 23 11/27/16 14:00 Blood Pressure 160/69 11/27/16 14:00 O2 Sat by Pulse Oximetry (%) 93 L 11/27/16 11:13 Constitutional: Well Nourished, No Distress, Calm HENT: Yes: Normocephalic Neck: Yes: Supple Cardiovascular: Yes: Regular Rate and Rhythm Respiratory: Yes: Dullness (R base) Gastrointestinal Inspection: Yes: Distention ...Auscultate: Yes: Hypoactive Bowel Sounds ...Palpate: Yes: Soft, Tenderness (RLQ) Labs: CBC, BMP 11/27/16 05:00 11/27/16 05:00 INR, PTT INR 1.67 (0.82-1.09) H 11/25/16 05:00 - ....Imaging Cat Scan: Report Reviewed (No significant change.) Assessment/Plan Gradually improving post-perf. WBC down and afebrile NGT pulled Keep NPO Will follow
--- NOTE | 2016-11-27 16:16 | PN ---
Progress Note, Physician History of Present Illness: Pt seen and examined. Events noted. Pt states he feels better. No fever/chills, NPO - Current Medication List Current Medications: Active Medications Heparin Sodium (Porcine) (Heparin -) 5,000 unit SQ BID MATILDE Last Admin: 11/27/16 10:06 Dose: 5,000 unit Metronidazole (Flagyl 500mg Premixed Ivpb -) 100 mls @ 100 mls/hr IVPB Q8H-IV MATILDE Last Admin: 11/27/16 10:07 Dose: 100 mls/hr Pantoprazole Sodium 40 mg/ (Sodium Chloride) 100 mls @ 200 mls/hr IVPB BID MATILDE Last Admin: 11/27/16 10:06 Dose: 200 mls/hr Meropenem 1 gm/ Dextrose 100 mls @ 100 mls/hr IVPB Q8H-IV MATILDE PRN Reason: Protocol Last Admin: 11/27/16 10:05 Dose: 100 mls/hr Potassium Chloride/Dextrose/Sod Cl (D5-1/2ns+30 Meq Kcl -) 1,000 mls @ 50 mls/ hr IV ASDIR MATILDE Metoclopramide HCl (Reglan Injection -) 10 mg IVPB Q8H-IV MATILDE Last Admin: 11/27/16 10:06 Dose: 10 mg Morphine Sulfate (Morphine Injection -) 1 mg IVPUSH Q3H PRN PRN Reason: PAIN Last Admin: 11/27/16 10:06 Dose: 1 mg - Objective Vital Signs: Vital Signs Temperature 98.8 F 11/27/16 14:00 Pulse Rate 80 11/27/16 14:00 Respiratory Rate 23 11/27/16 14:00 Blood Pressure 160/69 11/27/16 14:00 O2 Sat by Pulse Oximetry (%) 93 L 11/27/16 11:13 Constitutional: Yes: No Distress Cardiovascular: Yes: Regular Rate and Rhythm Respiratory: Yes: CTA Bilaterally Gastrointestinal: Yes: Soft, Other (distended, NT) Genitourinary: Yes: WNL Extremities: Yes: WNL Psychiatric: Yes: Alert, Oriented Labs: CBC, BMP 11/27/16 05:00 11/27/16 05:00 INR, PTT INR 1.67 (0.82-1.09) H 11/25/16 05:00 - ....Imaging Cat Scan: Report Reviewed Problem List - Problems (1) Abdominal pain Code(s): R10.9 - UNSPECIFIED ABDOMINAL PAIN Qualifiers: Abdominal location: generalized Qualified Code(s): R10.84 - Generalized abdominal pain (2) BPH (benign prostatic hyperplasia) Code(s): N40.0 - BENIGN PROSTATIC HYPERPLASIA WITHOUT LOWER URINRY TRACT SYMP (3) Duodenal perforation Code(s): K63.1 - PERFORATION OF INTESTINE (NONTRAUMATIC) (4) HLD (hyperlipidemia) Code(s): E78.5 - HYPERLIPIDEMIA, UNSPECIFIED (5) HTN (hypertension) Code(s): I10 - ESSENTIAL (PRIMARY) HYPERTENSION (6) Pancreatitis Code(s): K85.90 - ACUTE PANCREATITIS WITHOUT NECROSIS OR INFECTION, UNSP (7) Leukocytosis Code(s): D72.829 - ELEVATED WHITE BLOOD CELL COUNT, UNSPECIFIED Assessment/Plan - cont antibiotics -wbc improving continue monitor closely surgery following cc time: 40 min
[2016-11-27] MEDS: D5-1/2NS+30 MEQ KCL - 1,000 ML IV SCH (20:00)
--- NOTE | 2016-11-27 21:22 | PN ---
Progress Note, Physician History of Present Illness: Pt is feeling better - Current Medication List Current Medications: Active Medications Heparin Sodium (Porcine) (Heparin -) 5,000 unit SQ BID MATILDE Last Admin: 11/27/16 10:06 Dose: 5,000 unit Metronidazole (Flagyl 500mg Premixed Ivpb -) 100 mls @ 100 mls/hr IVPB Q8H-IV MATILDE Last Admin: 11/27/16 17:42 Dose: 100 mls/hr Pantoprazole Sodium 40 mg/ (Sodium Chloride) 100 mls @ 200 mls/hr IVPB BID MATILDE Last Admin: 11/27/16 10:06 Dose: 200 mls/hr Meropenem 1 gm/ Dextrose 100 mls @ 100 mls/hr IVPB Q8H-IV MATILDE PRN Reason: Protocol Last Admin: 11/27/16 17:43 Dose: 100 mls/hr Potassium Chloride/Dextrose/Sod Cl (D5-1/2ns+30 Meq Kcl -) 1,000 mls @ 50 mls/ hr IV ASDIR MATILDE Metoclopramide HCl (Reglan Injection -) 10 mg IVPB Q8H-IV MATILDE Last Admin: 11/27/16 17:43 Dose: 10 mg Morphine Sulfate (Morphine Injection -) 1 mg IVPUSH Q3H PRN PRN Reason: PAIN Last Admin: 11/27/16 10:06 Dose: 1 mg - Objective Vital Signs: Vital Signs Temperature 98.4 F 11/27/16 18:00 Pulse Rate 75 11/27/16 20:00 Respiratory Rate 20 11/27/16 20:00 Blood Pressure 140/71 11/27/16 20:00 O2 Sat by Pulse Oximetry (%) 93 L 11/27/16 11:13 Constitutional: Yes: No Distress HENT: Yes: WNL Neck: Yes: WNL, Supple Cardiovascular: Yes: Tachycardia Respiratory: Yes: Diminished Gastrointestinal: Yes: Normal Bowel Sounds, Soft, Distention Edema: No Labs: CBC, BMP 11/27/16 05:00 11/27/16 05:00 INR, PTT INR 1.67 (0.82-1.09) H 11/25/16 05:00 Problem List - Problems (1) Abdominal pain Assessment/Plan: Due to duodenal perforation/pancreatitis ERCP pancreatitis Cont IV meropenem/flagyl Repeat ct scan abd showed no change in perforation/pancreatitis However ct scan did show pleural effusion Decrease IVF Cultures remain negative WBC decreased Code(s): R10.9 - UNSPECIFIED ABDOMINAL PAIN Qualifiers: Abdominal location: generalized Qualified Code(s): R10.84 - Generalized abdominal pain (2) Duodenal perforation Assessment/Plan: NGT was dc'ed Cont IV meropenem/flagyl Cultures remain negative No change on repeat ct scan abd Code(s): K63.1 - PERFORATION OF INTESTINE (NONTRAUMATIC) (3) Pancreatitis Assessment/Plan: Cont IVF Cont IV meropenem/flagyl Monitor labs CT scan abd did not show any change in pancreatitis Code(s): K85.90 - ACUTE PANCREATITIS WITHOUT NECROSIS OR INFECTION, UNSP (4) HTN (hypertension) Code(s): I10 - ESSENTIAL (PRIMARY) HYPERTENSION (5) HLD (hyperlipidemia) Code(s): E78.5 - HYPERLIPIDEMIA, UNSPECIFIED (6) BPH (benign prostatic hyperplasia) Code(s): N40.0 - BENIGN PROSTATIC HYPERPLASIA WITHOUT LOWER URINRY TRACT SYMP
[2016-11-28] MEDS ORDERED: PT OWN MED DRAWER 7, Y5N ONE ×4 (02:37→21:13)
[2016-11-28] MEDS: METRONIDAZOLE 500 MG PREMIXED 100 ML IVPB SCH ×3 (02:48→17:08)
[2016-11-28] MEDS: METOCLOPRAMIDE HCL INJECTION 10 MG/2 ML VIAL IVPB SCH ×3 (02:48→17:09)
[2016-11-28] MEDS: MEROPENEM 1 GM in DEXTROSE 5%-WATER - 100 ML IVPB SCH ×3 (02:48→17:08)
[2016-11-28 05:57] LABS: MCH 29.8 pg (25.7-33.7); MCHC 33.6 g/dl (32.0-35.9); MEAN CELL VOLUME 88.7 fl (80-96); MEAN PLT VOLUME 8.9 fl (7.5-11.1); PLATELET COUNT 234 K/MM3 (134-434); RDW 15.5 % (11.9-15.9); WHITE BLOOD COUNT 14.9 K/mm3 (4.0-10.0)
[2016-11-28 07:10] LABS: ALBUMIN 2.1 g/dl (3.4-5.0); ALK PHOS 42 U/L (45-117); ANION GAP 9 (8-16); BILIRUBIN,TOTAL 0.4 mg/dL (0.2-1.0); CALCIUM 7.7 mg/dL (8.5-10.1); CO2 27 mmol/L (21-32); CREATININE 0.6 mg/dL (0.7-1.3); GLUCOSE,RANDOM 137 mg/dL (74-106); MAGNESIUM 2.2 mg/dL (1.8-2.4); PHOSPHOROUS 1.2 mg/dL (2.5-4.9); SGOT/AST 19 U/L (15-37); SGPT/ALT 11 U/L (12-78); TOT PROT 5.1 g/dl (6.4-8.2)
--- NOTE | 2016-11-28 09:34 | PN ---
Progress Note (short form) - Note Progress Note: Patient seen and examined in the ICU. Abdominal pain is improving. (+) BM. NGT was D/C yesterday. No fevers or chills. No nausea or vomiting. NPO. OBJECTIVE: Intake & Output 11/25/16 11/26/16 11/27/16 11/28/16 23:59 23:59 23:59 23:59 Intake Total 5750 4521 2325 700 Output Total 1975 1450 1340 700 Balance 3775 3071 985 0 Weight 187 lb 6.287 oz 190 lb 4 oz 194 lb 196 lb 4.8 oz Last Vital Signs Temp Pulse Resp BP Pulse Ox 97.8 F 70 18 140/65 93 L 11/28/16 06:00 11/28/16 06:00 11/28/16 06:00 11/28/16 06:00 11/27/16 21:00 Active Medications Heparin Sodium (Porcine) (Heparin -) 5,000 unit SQ BID MATILDE Last Admin: 11/27/16 22:39 Dose: 5,000 unit Metronidazole (Flagyl 500mg Premixed Ivpb -) 100 mls @ 100 mls/hr IVPB Q8H-IV MATILDE Last Admin: 11/28/16 02:48 Dose: 100 mls/hr Pantoprazole Sodium 40 mg/ (Sodium Chloride) 100 mls @ 200 mls/hr IVPB BID MATILDE Last Admin: 11/27/16 22:39 Dose: 200 mls/hr Meropenem 1 gm/ Dextrose 100 mls @ 100 mls/hr IVPB Q8H-IV MATILDE PRN Reason: Protocol Last Admin: 11/28/16 02:48 Dose: 100 mls/hr Potassium Chloride/Dextrose/Sod Cl (D5-1/2ns+30 Meq Kcl -) 1,000 mls @ 50 mls/ hr IV ASDIR MTAILDE Last Admin: 11/27/16 20:00 Dose: 50 mls/hr Metoclopramide HCl (Reglan Injection -) 10 mg IVPB Q8H-IV MATILDE Last Admin: 11/28/16 02:48 Dose: 10 mg Morphine Sulfate (Morphine Injection -) 1 mg IVPUSH Q3H PRN PRN Reason: PAIN Last Admin: 11/27/16 10:06 Dose: 1 mg Gen: Awake and alert, NAD Heart: RRR Lung: Decreased breath sounds at the bases Abd: Not distended, (+) BS, (-) tenderness, no rebound Ext: no edema Laboratory Results - last 24 hr 11/28/16 11/28/16 11/28/16 05:00 05:00 05:00 WBC 14.9 H RBC 4.00 Hgb 11.9 Hct 35.5 MCV 88.7 MCH 29.8 MCHC 33.6 RDW 15.5 Plt Count 234 MPV 8.9 Sodium 145 Potassium 4.0 Chloride 109 H Carbon Dioxide 27 Anion Gap 9 BUN 17 Creatinine 0.6 L D Creat Clearance w eGFR > 60 Random Glucose 137 H Calcium 7.7 L Phosphorus 1.2 L Magnesium 2.2 Total Bilirubin 0.4 AST 19 D ALT 11 L D Alkaline Phosphatase 42 L Total Protein 5.1 L Albumin 2.1 L Lipase 692 H ASSESSMENT AND PLAN: Choledocholelithiasis S/P ERCP Acute Pancreatits/Duodenal Perforation Lactic Acidosis HTN Hyperlipidemia h/o CVA - ABX per ID - Replete and monitor lytes - pain control - Incentive spirometry - NPO - DVT prophylaxis Dr Nunez Critical care time spent in reviewing chart, evaluating pt and formulating plan 35 min.
[2016-11-28] MEDS: PANTOPRAZOLE SODIUM 40 MG in SODIUM CHLORIDE 100 ML IVPB SCH ×2 (10:32→21:16)
[2016-11-28] MEDS: HEPARIN NA (PORCINE) 5,000 UNITS/ML 1ML VIAL SQ SCH ×2 (10:33→21:16)
[2016-11-28] MEDS: D5-1/2NS+30 MEQ KCL - 1,000 ML IV SCH (10:41)
[2016-11-28] MEDS ORDERED: POTASSIUM PHOSPHATE 30 MM in DEXTROSE 5%-WATER - 250 ML IVPB ONE (11:45)
--- NOTE | 2016-11-28 16:32 | PN ---
GI Progress Note Subjective: Continues to improve clinically Up in chair Denies pain - Objective Vital Signs: Vital Signs Temperature 99.2 F 11/28/16 14:00 Pulse Rate 75 11/28/16 14:00 Respiratory Rate 18 11/28/16 14:00 Blood Pressure 147/69 11/28/16 14:00 O2 Sat by Pulse Oximetry (%) 96 11/28/16 09:00 Constitutional: Well Nourished, No Distress Gastrointestinal Inspection: Yes: Distention ...Auscultate: Yes: Normoactive Bowel Sounds ...Palpate: Yes: Soft (softly distended) Labs: CBC, BMP 11/28/16 05:00 11/28/16 05:00 INR, PTT INR 1.67 (0.82-1.09) H 11/25/16 05:00 Abnormal Lab Results 11/28/16 11/28/16 11/28/16 05:00 05:00 05:00 WBC 14.9 H Chloride 109 H Creatinine 0.6 L D Random Glucose 137 H Calcium 7.7 L Phosphorus 1.2 L ALT 11 L D Alkaline Phosphatase 42 L Total Protein 5.1 L Albumin 2.1 L Lipase 692 H Assessment/Plan Gradually improving post-perf. WBC continues to trend down and afebrile NGT pulled Lipase down 692 Keep NPO. Will probably be able to start clears tomorrow Will follow
--- NOTE | 2016-11-28 17:17 | PN ---
Progress Note, Physician History of Present Illness: Events noted, labs reviewed. Pt is doing well. States he is hungry, currently NPO. Denies pain or having any specific complaints. - Current Medication List Current Medications: Active Medications Heparin Sodium (Porcine) (Heparin -) 5,000 unit SQ BID MATILDE Last Admin: 11/28/16 10:33 Dose: 5,000 unit Metronidazole (Flagyl 500mg Premixed Ivpb -) 100 mls @ 100 mls/hr IVPB Q8H-IV MATILDE Last Admin: 11/28/16 17:08 Dose: 100 mls/hr Pantoprazole Sodium 40 mg/ (Sodium Chloride) 100 mls @ 200 mls/hr IVPB BID MATILDE Last Admin: 11/28/16 10:32 Dose: 200 mls/hr Meropenem 1 gm/ Dextrose 100 mls @ 100 mls/hr IVPB Q8H-IV MATILDE PRN Reason: Protocol Last Admin: 11/28/16 17:08 Dose: 100 mls/hr Potassium Chloride/Dextrose/Sod Cl (D5-1/2ns+30 Meq Kcl -) 1,000 mls @ 50 mls/ hr IV ASDIR MATILDE Last Admin: 11/28/16 10:41 Dose: Not Given Metoclopramide HCl (Reglan Injection -) 10 mg IVPB Q8H-IV MATILDE Last Admin: 11/28/16 17:09 Dose: 10 mg Morphine Sulfate (Morphine Injection -) 1 mg IVPUSH Q3H PRN PRN Reason: PAIN Last Admin: 11/27/16 10:06 Dose: 1 mg - Objective Vital Signs: Vital Signs Temperature 99.2 F 11/28/16 14:00 Pulse Rate 82 11/28/16 16:00 Respiratory Rate 19 11/28/16 16:00 Blood Pressure 150/79 11/28/16 16:00 O2 Sat by Pulse Oximetry (%) 96 11/28/16 09:00 Constitutional: Yes: No Distress Neck: Yes: Supple Cardiovascular: Yes: Regular Rate and Rhythm Respiratory: Yes: Regular Gastrointestinal: Yes: Normal Bowel Sounds, Soft, Distention, Other Genitourinary: Yes: WNL Musculoskeletal: Yes: WNL Extremities: Yes: WNL Neurological: Yes: Alert, Oriented Labs: CBC, BMP 11/28/16 05:00 11/28/16 05:00 INR, PTT INR 1.67 (0.82-1.09) H 11/25/16 05:00 Problem List - Problems (1) Abdominal pain Code(s): R10.9 - UNSPECIFIED ABDOMINAL PAIN Qualifiers: Abdominal location: generalized Qualified Code(s): R10.84 - Generalized abdominal pain (2) BPH (benign prostatic hyperplasia) Code(s): N40.0 - BENIGN PROSTATIC HYPERPLASIA WITHOUT LOWER URINRY TRACT SYMP (3) Duodenal perforation Code(s): K63.1 - PERFORATION OF INTESTINE (NONTRAUMATIC) (4) HLD (hyperlipidemia) Code(s): E78.5 - HYPERLIPIDEMIA, UNSPECIFIED (5) HTN (hypertension) Code(s): I10 - ESSENTIAL (PRIMARY) HYPERTENSION (6) Pancreatitis Code(s): K85.90 - ACUTE PANCREATITIS WITHOUT NECROSIS OR INFECTION, UNSP (7) Leukocytosis Code(s): D72.829 - ELEVATED WHITE BLOOD CELL COUNT, UNSPECIFIED Assessment/Plan Pt appears to be improving wbc trending down cont current antibiotic monitor wbc surgical follow up cc time: 40 min
[2016-11-28] MEDS ORDERED: DEXTROSE 5%-0.45% SALINE 1,000 ML with POTASSIUM CHLORIDE 30 MEQ IVPB SCH (18:08)
[2016-11-29] MEDS: MEROPENEM 1 GM in DEXTROSE 5%-WATER - 100 ML IVPB SCH ×2 (01:26→09:20)
[2016-11-29] MEDS: METRONIDAZOLE 500 MG PREMIXED 100 ML IVPB SCH ×2 (01:26→09:19)
[2016-11-29] MEDS: METOCLOPRAMIDE HCL INJECTION 10 MG/2 ML VIAL IVPB SCH ×2 (01:27→09:26)
[2016-11-29 06:01] LABS: MCH 29.8 pg (25.7-33.7); MCHC 33.8 g/dl (32.0-35.9); MEAN CELL VOLUME 88.2 fl (80-96); MEAN PLT VOLUME 9.1 fl (7.5-11.1); PLATELET COUNT 251 K/MM3 (134-434); RDW 15.9 % (11.9-15.9); WHITE BLOOD COUNT 17.4 K/mm3 (4.0-10.0)
[2016-11-29 06:31] LABS: ANION GAP 9 (8-16); CALCIUM 7.7 mg/dL (8.5-10.1); CO2 30 mmol/L (21-32); GLUCOSE,RANDOM 122 mg/dL (74-106); MAGNESIUM 2.2 mg/dL (1.8-2.4); PHOSPHOROUS 1.8 mg/dL (2.5-4.9); SGOT/AST 25 U/L (15-37); SGPT/ALT 12 U/L (12-78)
[2016-11-29 06:34] LABS: ALK PHOS 43 U/L (45-117); BILIRUBIN,TOTAL 0.5 mg/dL (0.2-1.0); CREATININE 0.6 mg/dL (0.7-1.3); TOT PROT 5.2 g/dl (6.4-8.2)
[2016-11-29 06:41] LABS: METAMYELOCYTE 1 % (0-2); MYELOCYTE 3 % (0-2); PLATELET ESTIMATE ADEQUATE (NORMAL); TOTAL CELLS COUNTED 100
--- NOTE | 2016-11-29 08:26 | PN ---
Physical Exam: 24H events -Low grade fever 99.9F, increased WBC (14.9 to 17.4) SUBJECTIVE: Patient seen and examined in ICU. No fever, chills, nausea or vomiting. Denies abdominal pain. Remains NPO, and states he is hungry. 2xBMs last night and this AM. OBJECTIVE: Vital Signs Period Temp Pulse Resp BP Sys/Weber Pulse Ox Last 24 Hr 98.2 F-99.9 F 71-82 15-22 123-166/63-79 96-96 Intake & Output 11/26/16 11/27/16 11/28/16 11/29/16 23:59 23:59 23:59 23:59 Intake Total 4521 2325 2150 950 Output Total 1450 1340 1500 Balance 3071 985 650 950 Weight 86.296 kg 87.997 kg 89.04 kg 88.451 kg GENERAL: The patient is awake, alert, and fully oriented, nad EYES: sclera anicteric, conjunctiva clear LUNGS: decreased breath sounds at bases, R>L HEART: rrr, normal s1/s2, no murmur, rub or gallop ABDOMEN: mild distention, ttp RUQ>RLQ, normoactive BS, no rebound tenderness or guarding EXTREMITIES: 2+ pulses, warm, well-perfused, no LE edema Laboratory Results - last 24 hr 11/29/16 11/29/16 05:00 05:00 WBC 17.4 H RBC 4.08 Hgb 12.2 Hct 36.0 MCV 88.2 MCH 29.8 MCHC 33.8 RDW 15.9 Plt Count 251 MPV 9.1 Total Counted 100 Neutrophils % No Result Required. Neutrophils % (Manual) 58 D Band Neuts % (Manual) 4 Lymphocytes % No Result Required. Lymphocytes % (Manual) 28 D Monocytes % (Manual) 6 Myelocytes % (Man) 3 H Platelet Estimate Adequate Sodium 145 Potassium 4.1 Chloride 106 Carbon Dioxide 30 Anion Gap 9 BUN 14 Creatinine 0.6 L Creat Clearance w eGFR > 60 Random Glucose 122 H Calcium 7.7 L Phosphorus 1.8 L D Magnesium 2.2 Total Bilirubin 0.5 D AST 25 D ALT 12 Alkaline Phosphatase 43 L Total Protein 5.2 L Albumin 2.0 L Imaging: CXR 11/29/16: Persistent R pleural effusion, mildly increased compared to 11/26 CXR Active Medications Heparin Sodium (Porcine) (Heparin -) 5,000 unit SQ BID MATILDE Last Admin: 11/28/16 21:16 Dose: 5,000 unit Metronidazole (Flagyl 500mg Premixed Ivpb -) 100 mls @ 100 mls/hr IVPB Q8H-IV MATILDE Last Admin: 11/29/16 01:26 Dose: 100 mls/hr Pantoprazole Sodium 40 mg/ (Sodium Chloride) 100 mls @ 200 mls/hr IVPB BID MATILDE Last Admin: 11/28/16 21:16 Dose: 200 mls/hr Meropenem 1 gm/ Dextrose 100 mls @ 100 mls/hr IVPB Q8H-IV MATILDE PRN Reason: Protocol Last Admin: 11/29/16 01:26 Dose: 100 mls/hr Potassium Chloride 30 meq/ (Dextrose/Sodium Chloride) 1,015 mls @ 50 mls/hr IV ASDIR MATILDE Metoclopramide HCl (Reglan Injection -) 10 mg IVPB Q8H-IV MATILDE Last Admin: 11/29/16 01:27 Dose: 10 mg Morphine Sulfate (Morphine Injection -) 1 mg IVPUSH Q3H PRN PRN Reason: PAIN Last Admin: 11/27/16 10:06 Dose: 1 mg ASSESSMENT/PLAN: 76yo man with PMH of HTN, CVA, and choledocholithiasis s/p ERCP (11/23) c/b acute pancreatitis/duodenal perforation who has been conservatively managed with improving abdominal distention/pain. #Pulm -O2 2L NC PRN. Titrate to >94% -Incentive spirometer #ID: -Trend fever, WBC -ID recs appreciated -Continue metronidazole, meropenem #Renal -Strict I&Os -Daily BMPs, trend BUN/Cr -Monitor lytes #Heme - Trend H/H. Transfuse at <7 #GI - General surgery following - Reglan 10mg IV q8h PRN for nausea #Neuro -Morphine 1mg IVPUSH Q3H PRN for pain #FEN -Fluids: NS 75 cc/hr -Electrolytes: Daily BMPs, Trend BUN/Cr -NPO, awaiting GI/surgery clearance to advance diet #PPX -SubQ Heparin for DVT ppx -PPI for GI ppx DISPO: full code, patient can be transferred to floors d/w attending Dr. Enrique Barrientos, PGY-1 Visit type - Emergency Visit Emergency Visit: No - New Patient This patient is new to me today: No - Critical Care Critical Care patient: Yes Total Critical Care Time (in minutes): 35 Critical Care Statement: The care of this patient involved high complexity decision making to prevent further life threatening deterioration of the patient 's condition and/or to evaluate & treat vital organ system(s) failure or risk of failure.
[2016-11-29] MEDS ORDERED: SODIUM CHLORIDE 1,000 ML IV SCH ×2 (09:00→14:45)
[2016-11-29] MEDS: HEPARIN NA (PORCINE) 5,000 UNITS/ML 1ML VIAL SQ SCH (09:20)
[2016-11-29] MEDS: PANTOPRAZOLE SODIUM 40 MG in SODIUM CHLORIDE 100 ML IVPB SCH (09:20)
--- NOTE | 2016-11-29 12:28 | PN ---
Teaching Attending Note Name of Resident: Emily Barrientos ATTENDING PHYSICIAN STATEMENT I saw and evaluated the patient. I reviewed the resident's note and discussed the case with the resident. I agree with the resident's findings and plan as documented. SUBJECTIVE: Patient seen and examined in the ICU. Abdominal pain is improving, minimal RLQ discomfort to palpation. (+) BM x 2. No fevers or chills. No nausea or vomiting. Has been NPO. OBJECTIVE: Intake & Output 11/26/16 11/27/16 11/28/16 11/29/16 23:59 23:59 23:59 23:59 Intake Total 4521 2325 2150 950 Output Total 1450 1340 1500 Balance 3071 985 650 950 Weight 190 lb 4 oz 194 lb 196 lb 4.8 oz 195 lb Last Vital Signs Temp Pulse Resp BP Pulse Ox 100.7 F H 94 H 20 147/94 96 11/29/16 10:00 11/29/16 10:00 11/29/16 10:00 11/29/16 10:00 11/29/16 09:00 Active Medications Heparin Sodium (Porcine) (Heparin -) 5,000 unit SQ BID MATILDE Last Admin: 11/29/16 09:20 Dose: 5,000 unit Metronidazole (Flagyl 500mg Premixed Ivpb -) 100 mls @ 100 mls/hr IVPB Q8H-IV MATILDE Last Admin: 11/29/16 09:19 Dose: 100 mls/hr Pantoprazole Sodium 40 mg/ (Sodium Chloride) 100 mls @ 200 mls/hr IVPB BID MATILDE Last Admin: 11/29/16 09:20 Dose: 200 mls/hr Meropenem 1 gm/ Dextrose 100 mls @ 100 mls/hr IVPB Q8H-IV MATILDE PRN Reason: Protocol Last Admin: 11/29/16 09:20 Dose: 100 mls/hr Sodium Chloride (Normal Saline -) 1,000 mls @ 75 mls/hr IV ASDIR MATILDE Last Admin: 11/29/16 09:19 Dose: 75 mls/hr Metoclopramide HCl (Reglan Injection -) 10 mg IVPB Q8H-IV MATILDE Last Admin: 11/29/16 09:26 Dose: 10 mg Morphine Sulfate (Morphine Injection -) 1 mg IVPUSH Q3H PRN PRN Reason: PAIN Last Admin: 11/27/16 10:06 Dose: 1 mg Gen: Awake and alert, NAD Heart: RRR Lung: Decreased breath sounds at the bases Abd: Not distended, (+) BS, (-) tenderness, no rebound Ext: no edema Laboratory Results - last 24 hr 11/29/16 11/29/16 05:00 05:00 WBC 17.4 H RBC 4.08 Hgb 12.2 Hct 36.0 MCV 88.2 MCH 29.8 MCHC 33.8 RDW 15.9 Plt Count 251 MPV 9.1 Total Counted 100 Neutrophils % No Result Required. Neutrophils % (Manual) 58 D Band Neuts % (Manual) 4 Lymphocytes % No Result Required. Lymphocytes % (Manual) 28 D Monocytes % (Manual) 6 Myelocytes % (Man) 3 H Platelet Estimate Adequate Sodium 145 Potassium 4.1 Chloride 106 Carbon Dioxide 30 Anion Gap 9 BUN 14 Creatinine 0.6 L Creat Clearance w eGFR > 60 Random Glucose 122 H Calcium 7.7 L Phosphorus 1.8 L D Magnesium 2.2 Total Bilirubin 0.5 D AST 25 D ALT 12 Alkaline Phosphatase 43 L Total Protein 5.2 L Albumin 2.0 L ASSESSMENT AND PLAN: Choledocholelithiasis S/P ERCP Acute Pancreatits/Duodenal Perforation Lactic Acidosis HTN Hyperlipidemia h/o CVA - ABX per ID - Replete and monitor lytes - pain control - Incentive spirometry - Floor - Will verify from GI/Surgery that patient can have PO intake Dr Nunez Critical care time spent in reviewing chart, evaluating pt and formulating plan 35 min.
--- NOTE | 2016-11-29 16:48 | HOSP ---
Subjective - Review of Symptoms Events since last encounter: Attempted to reached surgery again at 4PM for approval of advancement of diet to clears. Unable to reach Dr. Jackman in office. Family insistent they were promised clear liquid diet today. Order placed for trial of clears w/ 100cc limited for evening. Transfer to med-surg initiated. Pt much improved clinically , with normalized lactate, downtrending lipase and no further abdominal pain or nausea, w/ return of hunger. Receiving team to be aware of continued elevated WBC of 17 today, w/ very mild fever to 100.7. CXR w/ mild increased in R-sided pleural effusion. Physical Examination Vital Signs: Vital Signs Temperature 99.9 F H 11/29/16 14:00 Pulse Rate 83 11/29/16 14:00 Respiratory Rate 20 11/29/16 14:00 Blood Pressure 152/84 11/29/16 14:00 O2 Sat by Pulse Oximetry (%) 96 11/29/16 09:00 Labs: CBC, BMP 11/29/16 05:00 11/29/16 05:00 Visit type - Emergency Visit Emergency Visit: No - New Patient This patient is new to me today: No - Critical Care Critical Care patient: Yes Total Critical Care Time (in minutes): 10
[2016-11-29] MEDS ORDERED: morphine CARPU-JECT 2 MG/1 ML DISP.SYRIN IVPUSH PRN (17:00)
[2016-11-29] MEDS: SODIUM CHLORIDE 1,000 ML IV SCH (17:08)
--- NOTE | 2016-11-29 17:09 | PN ---
Progress Note, Physician History of Present Illness: patient looks clinically stable abd still distended patient spiking fevers - Current Medication List Current Medications: Active Medications Heparin Sodium (Porcine) (Heparin -) 5,000 unit SQ BID MATILDE Metronidazole (Flagyl 500mg Premixed Ivpb -) 100 mls @ 100 mls/hr IVPB Q8H-IV MATILDE Meropenem 1 gm/ Dextrose 100 mls @ 100 mls/hr IVPB Q8H-IV MATILDE PRN Reason: Protocol Pantoprazole Sodium 40 mg/ (Sodium Chloride) 100 mls @ 200 mls/hr IVPB BID MATILDE Sodium Chloride (Normal Saline -) 1,000 mls @ 75 mls/hr IV ASDIR MATILDE Metoclopramide HCl (Reglan Injection -) 10 mg IVPB Q8H-IV MATILDE Morphine Sulfate (Morphine Injection -) 1 mg IVPUSH Q3H PRN PRN Reason: PAIN - Objective Vital Signs: Vital Signs Temperature 99.9 F H 11/29/16 14:00 Pulse Rate 83 11/29/16 14:00 Respiratory Rate 20 11/29/16 14:00 Blood Pressure 152/84 11/29/16 14:00 O2 Sat by Pulse Oximetry (%) 96 11/29/16 09:00 Constitutional: Yes: Calm, Mild Distress Cardiovascular: Yes: Regular Rate and Rhythm Respiratory: Yes: Regular, CTA Bilaterally Gastrointestinal: Yes: Hypoactive Bowel Sounds, Tenderness Musculoskeletal: Yes: WNL Extremities: Yes: WNL Neurological: Yes: Alert, Oriented Psychiatric: Yes: Alert, Oriented Labs: CBC, BMP 11/29/16 05:00 11/29/16 05:00 INR, PTT INR 1.67 (0.82-1.09) H 11/25/16 05:00 Assessment/Plan - Problems (1) Abdominal pain Code(s): R10.9 - UNSPECIFIED ABDOMINAL PAIN Qualifiers: Abdominal location: generalized Qualified Code(s): R10.84 - Generalized abdominal pain (2) Duodenal perforation Code(s): K63.1 - PERFORATION OF INTESTINE (NONTRAUMATIC) (3) Pancreatitis Code(s): K85.90 - ACUTE PANCREATITIS WITHOUT NECROSIS OR INFECTION, UNSP (4) HTN (hypertension) Code(s): I10 - ESSENTIAL (PRIMARY) HYPERTENSION (5) HLD (hyperlipidemia) Code(s): E78.5 - HYPERLIPIDEMIA, UNSPECIFIED (6) BPH (benign prostatic hyperplasia) Code(s): N40.0 - BENIGN PROSTATIC HYPERPLASIA WITHOUT LOWER URINRY TRACT SYMP this patient has started spiking fevers and his wbc has jumped up i am very worried if the patient is having any abd process going on plan continue abx stat ct scan to see if anything going in abd surgery to reevalaute the patient keep pt npo very close monitoring rest as per icu cc time 40 min
[2016-11-29] MEDS ORDERED: MEROPENEM 1 GM in DEXTROSE 5%-WATER - 100 ML IVPB SCH (18:00)
[2016-11-29] MEDS ORDERED: METRONIDAZOLE 500 MG PREMIXED 100 ML IVPB SCH (18:00)
[2016-11-29] MEDS ORDERED: METOCLOPRAMIDE HCL INJECTION 10 MG/2 ML VIAL IVPB SCH (18:00)
[2016-11-29] MEDS ORDERED: DEXTROSE 5%-0.45% SALINE 1,000 ML with POTASSIUM CHLORIDE 30 MEQ IV SCH (18:08)
--- NOTE | 2016-11-29 19:42 | PN ---
GI Progress Note Subjective: patient complains of right sided,CVA pain, no nausea, no vomiting, hungry and wants to eat, he mild increase fo WBC compared to previous with low grade temperature, ct of the abdomen revelaed mild increase oin free fluid and inflammation in the right perinephric area, no collection noted - Objective Vital Signs: Vital Signs Temperature 99.9 F H 11/29/16 14:00 Pulse Rate 88 11/29/16 18:23 Respiratory Rate 20 11/29/16 18:23 Blood Pressure 153/66 11/29/16 18:23 O2 Sat by Pulse Oximetry (%) 96 11/29/16 09:00 Constitutional: Well Nourished Eyes: Yes: Conjunctiva Clear HENT: Yes: Atraumatic Neck: Yes: Supple Cardiovascular: Yes: Regular Rate and Rhythm ...Palpate: Yes: Soft. No: Firm/Rigid, Guarding, Hepatomegaly, Mass, Pulsatile Mass, Splenomegaly, Tenderness Labs: CBC, BMP 11/29/16 05:00 11/29/16 05:00 INR, PTT INR 1.67 (0.82-1.09) H 11/25/16 05:00 Problem List - Problems (1) Duodenal perforation Assessment/Plan: no evidence of worsening retroperitoneal air r> keep NPO surgical follow-up continue antibiotics Code(s): K63.1 - PERFORATION OF INTESTINE (NONTRAUMATIC) (2) Pancreatitis, acute Assessment/Plan: R> no evidence of pnacreatic necrosis by repeat catscan Code(s): K85.90 - ACUTE PANCREATITIS WITHOUT NECROSIS OR INFECTION, UNSP
[2016-11-29] MEDS ORDERED: FLUCONAZOLE 400 MG/D5W 200 ML IVPB SCH (20:00)
[2016-11-29] MEDS ORDERED: PT OWN MED DRAWER 7, Y5N ONE ×2 (21:32→22:28)
[2016-11-29] MEDS ORDERED: PANTOPRAZOLE SODIUM 40 MG in SODIUM CHLORIDE 100 ML IVPB SCH (22:00)
[2016-11-29] MEDS ORDERED: HEPARIN NA (PORCINE) 5,000 UNITS/ML 1ML VIAL SQ SCH (22:00)
--- NOTE | 2016-11-29 23:23 | PN ---
Progress Note, Physician History of Present Illness: Pt is feeling better however Tmax 100.7 - Current Medication List Current Medications: Active Medications Heparin Sodium (Porcine) (Heparin -) 5,000 unit SQ BID MATILDE Last Admin: 11/29/16 22:01 Dose: 5,000 unit Metronidazole (Flagyl 500mg Premixed Ivpb -) 100 mls @ 100 mls/hr IVPB Q8H-IV MATILDE Last Admin: 11/29/16 17:09 Dose: 100 mls/hr Pantoprazole Sodium 40 mg/ (Sodium Chloride) 100 mls @ 200 mls/hr IVPB BID MATILDE Last Admin: 11/29/16 22:01 Dose: 200 mls/hr Sodium Chloride (Normal Saline -) 1,000 mls @ 75 mls/hr IV ASDIR [facility] Last Admin: 11/29/16 17:08 Dose: Not Given Meropenem 1 gm/ Dextrose 100 mls @ 100 mls/hr IVPB Q8H-IV MATILDE PRN Reason: Protocol Last Admin: 11/29/16 17:10 Dose: 100 mls/hr Fluconazole (Diflucan 400 Mg/D5w Premixed Ivpb -) 200 mls @ 200 mls/hr IVPB DAILY [facility] Last Admin: 11/29/16 22:00 Dose: 200 mls/hr Metoclopramide HCl (Reglan Injection -) 10 mg IVPB Q8H-IV MATILDE Last Admin: 11/29/16 17:19 Dose: 10 mg Morphine Sulfate (Morphine Injection -) 1 mg IVPUSH Q3H PRN PRN Reason: PAIN - Objective Vital Signs: Vital Signs Temperature 99.7 F H 11/29/16 20:00 Pulse Rate 82 11/29/16 22:00 Respiratory Rate 15 11/29/16 22:00 Blood Pressure 159/72 11/29/16 22:00 O2 Sat by Pulse Oximetry (%) 96 11/29/16 21:00 HENT: Yes: WNL Neck: Yes: WNL, Supple Cardiovascular: Yes: WNL, Regular Rate and Rhythm Respiratory: Yes: WNL, Regular, CTA Bilaterally Gastrointestinal: Yes: WNL, Normal Bowel Sounds, Soft Edema: No Labs: CBC, BMP 11/29/16 05:00 11/29/16 05:00 INR, PTT INR 1.67 (0.82-1.09) H 11/25/16 05:00 Problem List - Problems (1) Abdominal pain Assessment/Plan: Due to duodenal perforation/pancreatitis ERCP pancreatitis Cont IV meropenem/flagyl Repeat ct scan abd showed fluid accumulation(?abscess)/free fluid/pleural effusion Pt was febrile today and WBC still elevated Cont NPO Check WBC in am Code(s): R10.9 - UNSPECIFIED ABDOMINAL PAIN Qualifiers: Abdominal location: generalized Qualified Code(s): R10.84 - Generalized abdominal pain (2) Duodenal perforation Assessment/Plan: NGT was dc'ed Cont IV meropenem/flagyl Cultures remain negative No change on repeat ct scan abd Code(s): K63.1 - PERFORATION OF INTESTINE (NONTRAUMATIC) (3) Pancreatitis Assessment/Plan: Cont IVF Cont IV meropenem/flagyl Monitor labs Lipase trending down Code(s): K85.90 - ACUTE PANCREATITIS WITHOUT NECROSIS OR INFECTION, UNSP (4) Pleural effusion Assessment/Plan: Cont to decrease IVF as possible Code(s): J90 - PLEURAL EFFUSION, NOT ELSEWHERE CLASSIFIED (5) HTN (hypertension) Code(s): I10 - ESSENTIAL (PRIMARY) HYPERTENSION (6) HLD (hyperlipidemia) Code(s): E78.5 - HYPERLIPIDEMIA, UNSPECIFIED (7) BPH (benign prostatic hyperplasia) Code(s): N40.0 - BENIGN PROSTATIC HYPERPLASIA WITHOUT LOWER URINRY TRACT SYMP
[2016-11-30] MEDS ORDERED: SODIUM CHLORIDE 1,000 ML IV SCH (00:27)
[2016-11-30] MEDS ORDERED: morphine CARPU-JECT 2 MG/1 ML DISP.SYRIN IVPUSH PRN (00:27)
[2016-11-30] MEDS: SODIUM CHLORIDE 1,000 ML IV SCH (00:30)
[2016-11-30] MEDS ORDERED: PT OWN MED DRAWER 7, Y5N ONE ×3 (01:39→17:17)
[2016-11-30] MEDS: METOCLOPRAMIDE HCL INJECTION 10 MG/2 ML VIAL IVPB SCH ×3 (01:41→18:24)
[2016-11-30] MEDS: MEROPENEM 1 GM in DEXTROSE 5%-WATER - 100 ML IVPB SCH ×3 (01:41→18:27)
[2016-11-30] MEDS: METRONIDAZOLE 500 MG PREMIXED 100 ML IVPB SCH ×3 (01:43→18:26)
[2016-11-30 08:22] LABS: MCHC 32.6 g/dl (32.0-35.9); MEAN PLT VOLUME 9.3 fl (7.5-11.1); PLATELET COUNT 256 K/MM3 (134-434); RDW 15.5 % (11.9-15.9); WHITE BLOOD COUNT 21.8 K/mm3 (4.0-10.0)
[2016-11-30 08:27] LABS: ALBUMIN 1.9 g/dl (3.4-5.0); ALK PHOS 48 U/L (45-117); ANION GAP 7 (8-16); BILIRUBIN,TOTAL 0.4 mg/dL (0.2-1.0); CALCIUM 7.8 mg/dL (8.5-10.1); CO2 31 mmol/L (21-32); CREATININE 0.6 mg/dL (0.7-1.3); GLUCOSE,RANDOM 85 mg/dL (74-106); MAGNESIUM 2.3 mg/dL (1.8-2.4); PHOSPHOROUS 2.4 mg/dL (2.5-4.9); SGOT/AST 31 U/L (15-37); SGPT/ALT 14 U/L (12-78); TOT PROT 4.9 g/dl (6.4-8.2)
--- NOTE | 2016-11-30 09:11 | PN ---
Progress Note, Physician History of Present Illness: Feeling better denies pain reports regular BMs and is asking to drink - Current Medication List Current Medications: Active Medications Heparin Sodium (Porcine) (Heparin -) 5,000 unit SQ BID MATILDE Metronidazole (Flagyl 500mg Premixed Ivpb -) 100 mls @ 100 mls/hr IVPB Q8H-IV MATILDE Last Admin: 11/30/16 01:43 Dose: 100 mls/hr Fluconazole (Diflucan 400 Mg/D5w Premixed Ivpb -) 200 mls @ 200 mls/hr IVPB DAILY [facility] Meropenem 1 gm/ Dextrose 100 mls @ 100 mls/hr IVPB Q8H-IV MATILDE PRN Reason: Protocol Last Admin: 11/30/16 01:41 Dose: 100 mls/hr Pantoprazole Sodium 40 mg/ (Sodium Chloride) 100 mls @ 200 mls/hr IVPB BID MATILDE Sodium Chloride (Normal Saline -) 1,000 mls @ 75 mls/hr IV ASDIR [facility] Last Admin: 11/30/16 00:35 Dose: 75 mls/hr Metoclopramide HCl (Reglan Injection -) 10 mg IVPB Q8H-IV MATILDE Last Admin: 11/30/16 01:41 Dose: 10 mg Morphine Sulfate (Morphine Injection -) 1 mg IVPUSH Q3H PRN PRN Reason: PAIN - Objective Vital Signs: Vital Signs Temperature 99.4 F 11/30/16 06:00 Pulse Rate 87 11/30/16 06:00 Respiratory Rate 16 11/30/16 06:00 Blood Pressure 140/70 11/30/16 06:00 O2 Sat by Pulse Oximetry (%) 94 L 11/30/16 00:00 Gastrointestinal: Yes: Other (moderately distended nontender) Labs: CBC, BMP 11/30/16 06:00 11/30/16 06:00 INR, PTT INR 1.67 (0.82-1.09) H 11/25/16 05:00 Problem List - Problems (1) Duodenal perforation Code(s): K63.1 - PERFORATION OF INTESTINE (NONTRAUMATIC) Assessment/Plan s/p ERCP with post ERCP pancreatitis and retroperitoneal perfortation Abdominal exam is improving However increasing pleural effusion with atelectasis, and increasing amount of retroperitoneal fluid ( does not appear organized enough for drainage Recommend consult with pulmonary medicine IR consult to review possible drainage of right side retroperitoneal collection
[2016-11-30] MEDS ORDERED: FLUCONAZOLE 400 MG/D5W 200 ML IVPB SCH (10:00)
[2016-11-30] MEDS ORDERED: PANTOPRAZOLE SODIUM 40 MG in SODIUM CHLORIDE 100 ML IVPB SCH (10:00)
[2016-11-30] MEDS: HEPARIN NA (PORCINE) 5,000 UNITS/ML 1ML VIAL SQ SCH ×2 (10:26→12:10)
[2016-11-30 10:54] LABS: METAMYELOCYTE 5 % (0-2); MYELOCYTE 2 % (0-2); PLATELET ESTIMATE ADEQUATE (NORMAL); TOTAL CELLS COUNTED 100
--- NOTE | 2016-11-30 12:00 | PN ---
GI Progress Note Subjective: clinically imrpoving but worrisome as wbc elevated to 21,000 and continued low grade temperature. I reviewed all CTs with Dr Hale and it seems that retroperitoneal air has improved but fluid around the Gerotas fascia has increased moderately compared to CT done 11/26/16. There is no fluid collection to drain nor an abscess. Patient clinically better while on NGT which was discontinued 2 days ago.. NGt was inserted minimal fluid obtained which was bloody mostly likely secondary to stress gastritis. Minimal of air was aspirated. - Objective Vital Signs: Vital Signs Temperature 99.4 F 11/30/16 06:00 Pulse Rate 87 11/30/16 06:00 Respiratory Rate 16 11/30/16 06:00 Blood Pressure 140/70 11/30/16 06:00 O2 Sat by Pulse Oximetry (%) 94 L 11/30/16 00:00 Constitutional: Well Nourished, Poor Hygeine HENT: Yes: Atraumatic Neck: Yes: Trachea Midline Cardiovascular: Yes: Regular Rate and Rhythm Respiratory: Yes: CTA Bilaterally ...Palpate: Yes: Soft. No: Firm/Rigid, Guarding, Hepatomegaly, Mass, Pulsatile Mass, Splenomegaly, Tenderness Labs: CBC, BMP 11/30/16 06:00 11/30/16 06:00 INR, PTT INR 1.67 (0.82-1.09) H 11/25/16 05:00 Problem List - Problems (1) Duodenal perforation Assessment/Plan: with inflammation and fluid around the Gerota's fascia and right colon, close follow-up needed as there might be small perforation draining to the retroperitoneal area. R> NGT for 48 hours HIDA SCAN TO R/O BILE LEAK continue antibiotic Code(s): K63.1 - PERFORATION OF INTESTINE (NONTRAUMATIC) (2) Pancreatitis, acute Code(s): K85.90 - ACUTE PANCREATITIS WITHOUT NECROSIS OR INFECTION, UNSP
--- NOTE | 2016-11-30 15:16 | PN ---
Progress Note, Physician History of Present Illness: patient looks clinically stable abd still distended patient spiking fevers wbc still continuing rise - Current Medication List Current Medications: Active Medications Heparin Sodium (Porcine) (Heparin -) 5,000 unit SQ BID MATILDE Last Admin: 11/30/16 12:10 Dose: Not Given Metronidazole (Flagyl 500mg Premixed Ivpb -) 100 mls @ 100 mls/hr IVPB Q8H-IV MATILDE Last Admin: 11/30/16 10:26 Dose: 100 mls/hr Fluconazole (Diflucan 400 Mg/D5w Premixed Ivpb -) 200 mls @ 200 mls/hr IVPB DAILY [facility] Meropenem 1 gm/ Dextrose 100 mls @ 100 mls/hr IVPB Q8H-IV MATILDE PRN Reason: Protocol Last Admin: 11/30/16 10:27 Dose: 100 mls/hr Pantoprazole Sodium 40 mg/ (Sodium Chloride) 100 mls @ 200 mls/hr IVPB BID [facility]IL[facility] Last Admin: 11/30/16 10:28 Dose: 200 mls/hr Sodium Chloride (Normal Saline -) 1,000 mls @ 75 mls/hr IV ASDIR [facility] Last Admin: 11/30/16 00:35 Dose: 75 mls/hr Metoclopramide HCl (Reglan Injection -) 10 mg IVPB Q8H-IV MATILDE Last Admin: 11/30/16 10:28 Dose: 10 mg Morphine Sulfate (Morphine Injection -) 1 mg IVPUSH Q3H PRN PRN Reason: PAIN - Objective Vital Signs: Vital Signs Temperature 100.2 F H 11/30/16 14:15 Pulse Rate 93 H 11/30/16 14:15 Respiratory Rate 18 11/30/16 14:15 Blood Pressure 151/76 11/30/16 14:15 O2 Sat by Pulse Oximetry (%) 94 L 11/30/16 09:00 Constitutional: Yes: No Distress, Calm Eyes: Yes: Conjunctiva Clear Cardiovascular: Yes: Regular Rate and Rhythm Respiratory: Yes: Regular, CTA Bilaterally Gastrointestinal: Yes: Distention, Tenderness, Other (ng tube in place) Musculoskeletal: Yes: WNL Extremities: Yes: WNL Neurological: Yes: Alert, Oriented Psychiatric: Yes: Alert, Oriented Labs: CBC, BMP 11/30/16 06:00 11/30/16 06:00 INR, PTT INR 1.67 (0.82-1.09) H 11/25/16 05:00 - ....Imaging Cat Scan: Report Reviewed, Image Reviewed Assessment/Plan - Problems (1) Abdominal pain Code(s): R10.9 - UNSPECIFIED ABDOMINAL PAIN Qualifiers: Abdominal location: generalized Qualified Code(s): R10.84 - Generalized abdominal pain (2) Duodenal perforation Code(s): K63.1 - PERFORATION OF INTESTINE (NONTRAUMATIC) (3) Pancreatitis Code(s): K85.90 - ACUTE PANCREATITIS WITHOUT NECROSIS OR INFECTION, UNSP (4) HTN (hypertension) Code(s): I10 - ESSENTIAL (PRIMARY) HYPERTENSION (5) HLD (hyperlipidemia) Code(s): E78.5 - HYPERLIPIDEMIA, UNSPECIFIED (6) BPH (benign prostatic hyperplasia) Code(s): N40.0 - BENIGN PROSTATIC HYPERPLASIA WITHOUT LOWER URINRY TRACT SYMP plan continue abx antifungal started rest continue current mgmt after looking at the ct scan he needs draiange patient is still spiking fevers and wbc is increasing
--- NOTE | 2016-11-30 18:07 | PN ---
Progress Note, Physician History of Present Illness: stable - Current Medication List Current Medications: Active Medications Heparin Sodium (Porcine) (Heparin -) 5,000 unit SQ BID MATILDE Last Admin: 11/30/16 12:10 Dose: Not Given Metronidazole (Flagyl 500mg Premixed Ivpb -) 100 mls @ 100 mls/hr IVPB Q8H-IV MATILDE Last Admin: 11/30/16 10:26 Dose: 100 mls/hr Meropenem 1 gm/ Dextrose 100 mls @ 100 mls/hr IVPB Q8H-IV MATILDE PRN Reason: Protocol Last Admin: 11/30/16 10:27 Dose: 100 mls/hr Pantoprazole Sodium 40 mg/ (Sodium Chloride) 100 mls @ 200 mls/hr IVPB BID MATILDE Last Admin: 11/30/16 10:28 Dose: 200 mls/hr Sodium Chloride (Normal Saline -) 1,000 mls @ 75 mls/hr IV ASDIR [facility] Last Admin: 11/30/16 00:35 Dose: 75 mls/hr Fluconazole (Diflucan 400 Mg/Ns Premixed Ivpb -) 200 mls @ 200 mls/hr IVPB DAILY [facility] Last Admin: 11/30/16 17:12 Dose: 200 mls/hr Metoclopramide HCl (Reglan Injection -) 10 mg IVPB Q8H-IV MATILDE Last Admin: 11/30/16 10:28 Dose: 10 mg Morphine Sulfate (Morphine Injection -) 1 mg IVPUSH Q3H PRN PRN Reason: PAIN - Objective Vital Signs: Vital Signs Temperature 100.2 F H 11/30/16 14:15 Pulse Rate 93 H 11/30/16 14:15 Respiratory Rate 18 11/30/16 14:15 Blood Pressure 151/76 11/30/16 14:15 O2 Sat by Pulse Oximetry (%) 94 L 11/30/16 09:00 Constitutional: Yes: No Distress HENT: Yes: Atraumatic Neck: Yes: Supple Cardiovascular: Yes: Regular Rate and Rhythm Respiratory: Yes: CTA Bilaterally Gastrointestinal: Yes: Normal Bowel Sounds Extremities: Yes: WNL Neurological: Yes: Alert, Oriented Labs: CBC, BMP 11/30/16 06:00 11/30/16 06:00 INR, PTT INR 1.67 (0.82-1.09) H 11/25/16 05:00 Problem List - Problems (1) Abdominal pain Assessment/Plan: ON PRN PAIN MEDS Code(s): R10.9 - UNSPECIFIED ABDOMINAL PAIN Qualifiers: Abdominal location: generalized Qualified Code(s): R10.84 - Generalized abdominal pain (2) Duodenal perforation Assessment/Plan: S/P ERCP ON IV ABX NPO IVF Code(s): K63.1 - PERFORATION OF INTESTINE (NONTRAUMATIC) (3) HLD (hyperlipidemia) Code(s): E78.5 - HYPERLIPIDEMIA, UNSPECIFIED (4) HTN (hypertension) Assessment/Plan: STABLE...FU BP IF NEEDED START HOME MEDS Code(s): I10 - ESSENTIAL (PRIMARY) HYPERTENSION (5) Pancreatitis Assessment/Plan: IMPROVING Code(s): K85.90 - ACUTE PANCREATITIS WITHOUT NECROSIS OR INFECTION, UNSP (6) Leukocytosis Assessment/Plan: ON ABX Code(s): D72.829 - ELEVATED WHITE BLOOD CELL COUNT, UNSPECIFIED Assessment/Plan COVERING TODAY FOR DR MO THIS IS MY FIRST ENCOUNTER WITH THIS PATIENT pt is awaiting transfer to [facility]
[2016-11-30 22:42] VITALS: BP 166/82; PULSE 89; TEMP 98.1
[2016-12-01] MEDS ORDERED: FLUCONAZOLE 400 MG/NS 200 ML IVPB SCH (10:00)
== END 2016-11-30 22:25 | disposition short-term general hospital (02) | DRG 393 ==
LOC: JER 10:57 → JERBED 16:35 → JICU 20:26 → J4S 11-29 23:55
PROVIDERS: ADMIT Internal Medicine; ATTEND Internal Medicine
PROC: 0D9670Z Drainage of Stomach with Drainage Device, Via Natural or Artificial Opening (ICD-10-PCS; principal; 2016-11-24)
DX: K91.89 Other postprocedural complications and disorders of digestive system (principal); K63.1 Perforation of intestine (nontraumatic); K85.90 Acute pancreatitis without necrosis or infection, unspecified; K56.7 Ileus, unspecified; E87.2 Acidosis; J90 Pleural effusion, not elsewhere classified; J98.11 Atelectasis; I10 Essential (primary) hypertension; E78.5 Hyperlipidemia, unspecified; N40.0 Benign prostatic hyperplasia without lower urinary tract symptoms; F32.9 Major depressive disorder, single episode, unspecified; Z68.30 Body mass index [BMI] 30.0-30.9, adult; R63.0 Anorexia; R10.84 Generalized abdominal pain; Y83.8 Other surgical procedures as the cause of abnormal reaction of the patient, or of later complication, without mention of misadventure at the time of the procedure; K80.50 Calculus of bile duct without cholangitis or cholecystitis without obstruction; K29.60 Other gastritis without bleeding; D72.829 Elevated white blood cell count, unspecified; R00.0 Tachycardia, unspecified; Z86.73 Personal history of transient ischemic attack (TIA), and cerebral infarction without residual deficits
CPT/HCPCS: 36415; 71010-TC; 71020-TC; 72193-TC; 74160-TC; 74177-TC; 76700-TC; 78226-TC; 80053; 81003; 81015; 83605; 83615; 83690; 83735; 84100; 84484; 85025; 85027; 85610; 85730; 86850; 86900; 86901; 87040; 87070; 87086; 87205; 87324; 87449; 93005; 93010; 94010; 99285-25; A9537; J1644

== ENCOUNTER 2017-03-22 02:56 | Inpatient (IN) | payer OTHER ==
--- NOTE | 2017-03-22 03:18 | PDOC ---
Attending Attestation - Resident Resident Name: AdalidanisaAnmol - ED Attending Attestation I have performed the following: I have examined & evaluated the patient, The case was reviewed & discussed with the resident, I agree w/resident's findings & plan, Exceptions are as noted - Medical Decision Making 03/22/17 03:18 I, Dr. Kellie Connell, DO, attest that this document has been prepared under my direction and personally reviewed by me in its entirety. I further attest, that it accurately reflects all work, treatment, procedures and medical decision -making performed by me. 03/22/17 03:23 a/p: 76yo male with abd pain, n/v today -supposed to have biliary stent removed by GI at [facility] today -acute onset of n/v and pt is pale and diaphoretic -no hx of AAA -poss biliary stent problem vs viral gastroenteritis vs colitis vs perforation vs intraabd pathology -will check labs, lactate, lipase, ct abd/pelvis -trops -ekg -pain control, ivf hydration, nausea control <Kellie Connell - Last Filed: 03/22/17 03:23> - HPI HPI: 03/22/17 03:29 The patient is a 76 year old male, with a significant past medical history of CVA, HTN, depression, and hypercholesterolemia, who presents to the emergency department with for sudden onset of diaphoresis, nausea, vomiting, abdominal pain and weakness this morning that woke him out of sleep. The patient reports his last normal BM was yesterday morning. Secondarily, the reports her had "stones that perforated", was admitted to the ICU of this hospital for 6 days and transferred to [facility] for "19 days with stent". Upon review of the patient's chart, "Pt was admtted to the ICU and managed for choledocholithiasis w/ perforated doudenum and pancreatitis. Pt underwent ERCP (11/23/16) c/b acute pancreatitis/duodenal perforation and transferred to [facility]." - Physicial Exam PE: 03/22/17 03:31 Constitutional: (+) ill appearing, pale, diaphoretic. Awake, alert, oriented. Head: Normocephalic. Atraumatic Eyes: PERRL. EOMI. Conjunctivae are not pale. ENT: Mucous membranes are moist and intact. Posterior pharynx without exudates or erythema. Uvula midline. Neck: Supple. Full ROM. No lymphadenopathy. Cardiovascular: Regular rate. Regular rhythm. S1, S2 regular. Distal pulses are 2+ and symmetric. Pulmonary/Chest: No evidence of respiratory distress. Clear to auscultation bilaterally No wheezing, rales or rhonchi. Abdominal: Soft with tenderness in the upper abdominal region without rebound or guarding. non-distended. There is no tenderness. No rebound, guarding or rigidity. No organomegaly. No palpable masses. Good bowel sounds. Back: No CVA tenderness. Musculoskeletal: No edema. No cyanosis. No clubbing. Full range of motion in all extremities. Nocalf tenderness. Radial/pedal pulses are intact and 2+ bilaterally Skin: (+) pale, diaphoretic, Skin is warm. No petechiae. No purpura. Neurological: Alert and oriented to person, place, and time. Cranial nerves II -XII are grossly intact. Normal speech. Strength is grossly symmetric. No sensory deficits. Psychiatric: Good eye contact. Normal interaction, affect and behavior. Documentation prepared by Gali Pelayo, acting as durable medical equipment repairer for Kellie Connell DO <Gali Pelayo - Last Filed: 03/22/17 04:03> Heart Score/ECG Review - ECG Intrepretation Comment:: 03/22/17 03:23 sinus at 65, nl axis, nl interval, no acute st/t wave findings <Kellie Connell - Last Filed: 03/22/17 03:23>
[2017-03-22] MEDS ORDERED: SODIUM CHLORIDE 0.9% 1000 ML INFUS.BAG IV ONE ×2 (03:19→05:19)
[2017-03-22] MEDS ORDERED: ONDANSETRON 4 MG/2 ML VIAL IVPUSH ONE (03:19)
[2017-03-22] MEDS ORDERED: FAMOTIDINE 20 MG/50 ML IVPB 20 MG/50 ML MG IVPB ONE (03:19)
[2017-03-22] MEDS ORDERED: morphine CARPU-JECT 4 MG/1 ML DISP.SYRIN IVPUSH ONE (03:19)
[2017-03-22] MEDS ORDERED: ONDANSETRON 4 MG/2 ML VIAL ONE (03:30)
[2017-03-22] MEDS ORDERED: morphine CARPU-JECT 10 MG/1 ML DISP.SYRIN ONE ×2 (03:30→06:14)
[2017-03-22 03:33] VITALS: BMI 28.2
[2017-03-22 03:45] LABS: BASO % 0.6 % (0-2.0); EOS % 0.1 % (0-4.5); HEMATOCRIT 39.5 % (35.4-49); HEMOGLOBIN 12.6 GM/dL (11.7-16.9); LYMPH % 18.3 % (8-40); MCH 26.6 pg (25.7-33.7); MCHC 31.8 g/dl (32.0-35.9); MEAN CELL VOLUME 83.7 fl (80-96); MEAN PLT VOLUME 8.6 fl (7.5-11.1); PLATELET COUNT 368 K/MM3 (134-434); RBC 4.72 M/mm3 (4.00-5.60); RDW 16.5 % (11.9-15.9); WHITE BLOOD COUNT 17.7 K/mm3 (4.0-10.0)
--- NOTE | 2017-03-22 03:46 | PDOC ---
History of Present Illness - General History Source: Patient Exam Limitations: No Limitations - History of Present Illness Initial Comments: 03/22/17 03:39 The patient is a 76M with a PMH of CVA, HTN, depression, hypercholesterolemia, and choledocolithiasis with duodenal perforation who presents to the ED after waking up in the middle of the night, feeling nauseous, sweating, and vomiting once NBNB associated with diffuse abdominal pain. He is complaining of diffuse abdominal pain. He was treated at our facility in Nov 2016 for choledocolithiasis with duodenal perforation and pancreatitis. <Anmol Ward - Last Filed: 03/22/17 07:07> <Aguilar Pardo - Last Filed: 03/22/17 09:00> - General Chief Complaint: Pain Stated Complaint: VOMITING Time Seen by Provider: 03/22/17 03:17 Past History - Past Medical History Cardiac Disorders: Yes CVA: Yes GI Disorders: Yes (HIATAL HERNIA, COLON POLYP) HTN: Yes Hypercholesterolemia: Yes Liver Disease: Yes (FATTY LIVER, HEPATIC CYST) - Surgical History Abdominal Surgery: Yes Appendectomy: Yes Cardiac Surgery: No Neurologic Surgery: Yes - Suicide/Smoking/Psychosocial Hx Smoking Status: No Smoking History: Never smoked Have you smoked in the past 12 months: No Number of Cigarettes Smoked Daily: 0 If you are a former smoker, when did you quit?: MANY YRS AGO Information on smoking cessation initiated: No Hx Alcohol Use: No Drug/Substance Use Hx: No Substance Use Type: None <Anmol Ward - Last Filed: 03/22/17 07:07> <Aguilar Pardo - Last Filed: 03/22/17 09:00> - Past Medical History Allergies/Adverse Reactions: Allergies Allergy/AdvReac Type Severity Reaction Status Date / Time No Known Allergies Allergy Verified 03/22/17 03:06 Home Medications: Ambulatory Orders Aspirin [ASA -] 81 mg PO DAILY 10/13/11 Meclizine HCl [Antivert -] 25 mg PO TID #0 tablet 10/13/11 Tamsulosin HCl 0.4 mg PO DAILY 10/13/11 Cholecalciferol (Vitamin D3) [Vitamin D3 -] 1,000 unit PO DAILY 11/23/16 Nebivolol HCl [Bystolic] 2 mg PO DAILY 11/23/16 Pantoprazole Sodium [Protonix -] 20 mg PO DAILY 11/23/16 Paroxetine HCl [Paxil -] 20 mg PO DAILY 11/23/16 Ubidecarenone [Co Q-10] 300 mg PO DAILY 11/23/16 Losartan 50Mg/Hctz 12.5MG [Hyzaar -] 0.5 tab PO HS 11/24/16 Review of Systems - Review of Systems Able to Perform ROS?: Yes Comments:: 03/22/17 04:48 GENERAL/CONSTITUTIONAL: No fever or chills. No weakness. HEAD, EYES, EARS, NOSE AND THROAT: No change in vision. No ear pain or discharge. No sore throat. GASTROINTESTINAL: Positive for abdominal pain, nausea, vomiting x 3. No diarrhea or constipation. GENITOURINARY: No dysuria, frequency, hematuria, or change in urination. CARDIOVASCULAR: No chest pain, palpitations, or lightheadedness. RESPIRATORY: No cough, wheezing, shortness of breath, or hemoptysis. MUSCULOSKELETAL: No joint or muscle swelling or pain. No neck or back pain. SKIN: No rash or lesions. NEUROLOGIC: No headache, numbness, tingling, weakness, loss of consciousness, or change in strength/sensation. ENDOCRINE: No increased thirst. No abnormal weight change. HEMATOLOGIC/LYMPHATIC: No anemia, easy bleeding, or history of blood clots. ALLERGIC/IMMUNOLOGIC: No hives or skin allergy. Is the patient limited Malay proficient: No <Anmol Ward - Last Filed: 03/22/17 07:07> *Physical Exam - Vital Signs Last Vital Signs Temp Pulse Resp BP Pulse Ox 97.4 F L 60 16 172/75 97 03/22/17 03:06 03/22/17 03:06 03/22/17 03:06 03/22/17 03:06 03/22/17 03:06 - Physical Exam Comments: 03/22/17 04:52 GENERAL: Well developed, well nourished. Awake and alert. No acute distress. HEENT: Normocephalic, atraumatic. Hearing grossly normal. Moist mucous membranes. PERRLA, EOMI. No conjunctival pallor. Sclera are non-icteric. Oropharynx is clear. NECK: Supple. Full ROM. No JVD. CARDIOVASCULAR: Regular rate and rhythm. No murmurs, rubs, or gallops. PULMONARY: No evidence of respiratory distress. Lungs clear to auscultation bilaterally. No wheezing, rales or rhonchi. ABDOMINAL: Soft. Tender to deep palpation over epigastric region. Non- distended. No rebound or guarding. GENITOURINARY: No CVA tenderness bilaterally. MUSCULOSKELETAL: Normal range of motion at all joints. No bony deformities or tenderness. EXTREMITIES: No cyanosis. No clubbing. No edema. No calf tenderness. SKIN: Warm and dry. Normal capillary refill. No rashes. No jaundice. NEUROLOGICAL: Alert, awake, appropriate. Cranial nerves 2-12 intact. Normal speech. Gait is normal without ataxia. PSYCHIATRIC: Cooperative. Good eye contact. Appropriate mood and affect. <Anmol Ward - Last Filed: 03/22/17 07:07> - Vital Signs Last Vital Signs Temp Pulse Resp BP Pulse Ox 98.9 F 68 20 159/72 97 03/22/17 07:57 03/22/17 07:57 03/22/17 07:57 03/22/17 07:57 03/22/17 08:02 <Aguilar Pardo - Last Filed: 03/22/17 09:00> Heart Score/ECG Review #1 ECG reviewed & interpreted by me at: 03:25 General ECG Interpretation: Sinus Rhythm, Normal Rate, Normal Intervals, No acute ischemic changes Compared to previous ECG there are: No significant change <Anmol Ward - Last Filed: 03/22/17 07:07> ED Treatment Course - LABORATORY CBC & Chemistry Diagram: 03/22/17 03:36 03/22/17 03:36 - Medications Given in the ED: ED Medications Discontinued Medications Generic Name Dose Route Start Last Admin Trade Name Law PRN Reason Stop Dose Admin Morphine Sulfate 4 mg 03/22/17 03:19 03/22/17 03:36 Morphine Injection - IVPUSH 03/22/17 03:20 4 mg ONCE ONE Administration Ondansetron HCl 4 mg 03/22/17 03:19 03/22/17 03:36 Zofran Injection IVPUSH 03/22/17 03:20 4 mg ONCE ONE Administration Sodium Chloride 1,000 ml 03/22/17 03:19 03/22/17 03:36 Normal Saline - IV 03/22/17 03:20 1,000 ml ONCE ONE Administration <Anmol Ward - Last Filed: 03/22/17 07:07> - LABORATORY CBC & Chemistry Diagram: 03/22/17 03:36 03/22/17 03:36 - ADDITIONAL ORDERS Additional order review: Laboratory Results 03/22/17 03/22/17 03/22/17 06:06 03:36 03:36 PT with INR 12.30 H INR 1.09 D PTT (Actin FS) Sodium Potassium Chloride Carbon Dioxide Anion Gap BUN Creatinine Creat Clearance w eGFR Random Glucose Lactic Acid Calcium Magnesium Cancelled Total Bilirubin AST ALT Alkaline Phosphatase Creatine Kinase Troponin I Total Protein Albumin Lipase Urine Color Straw Urine Appearance Clear Urine pH 7.0 D Ur Specific [place] 1.018 Urine Protein Negative Urine Glucose (UA) 1+ H Urine Ketones 1+ H Urine Blood Negative Urine Nitrite Negative Urine Bilirubin Negative Urine Urobilinogen Negative Ur Leukocyte Esterase Negative Blood Type Antibody Screen 03/22/17 03/22/17 03/22/17 03:36 03:36 03:36 PT with INR INR PTT (Actin FS) Sodium 139 Potassium 4.1 Chloride 102 Carbon Dioxide 23 D Anion Gap 14 BUN 11 Creatinine 0.9 D Creat Clearance w eGFR > 60 Random Glucose 149 H D Lactic Acid 2.8 H* Calcium 9.9 D Magnesium 1.7 L D Total Bilirubin 0.3 D AST 17 D ALT 16 Alkaline Phosphatase 82 D Creatine Kinase 52 Troponin I < 0.02 Total Protein 8.5 H D Albumin 3.7 D Lipase 90 Urine Color Urine Appearance Urine pH Ur Specific [place] Urine Protein Urine Glucose (UA) Urine Ketones Urine Blood Urine Nitrite Urine Bilirubin Urine Urobilinogen Ur Leukocyte Esterase Blood Type Cancelled Antibody Screen Cancelled 03/22/17 03:36 PT with INR INR PTT (Actin FS) 33.3 Sodium Potassium Chloride Carbon Dioxide Anion Gap BUN Creatinine Creat Clearance w eGFR Random Glucose Lactic Acid Calcium Magnesium Total Bilirubin AST ALT Alkaline Phosphatase Creatine Kinase Troponin I Total Protein Albumin Lipase Urine Color Urine Appearance Urine pH Ur Specific [place] Urine Protein Urine Glucose (UA) Urine Ketones Urine Blood Urine Nitrite Urine Bilirubin Urine Urobilinogen Ur Leukocyte Esterase Blood Type Antibody Screen 03/22/17 03:36 RBC 4.72 MCV 83.7 MCHC 31.8 L RDW 16.5 H MPV 8.6 Neutrophils % 78.0 Lymphocytes % 18.3 D Monocytes % 3.0 L Eosinophils % 0.1 D Basophils % 0.6 - Medications Given in the ED: ED Medications Discontinued Medications Generic Name Dose Route Start Last Admin Trade Name Law PRN Reason Stop Dose Admin Famotidine/Sodium Chloride 20 mg in 50 mls @ 100 mls/hr 03/22/17 03:19 04:00 Pepcid 20 Mg Premixed Ivpb - IVPB 03/22/17 03:48 100 mls/hr ONCE ONE Administration Vancomycin HCl 1,000 mg/ 250 mls @ 250 mls/hr 03/22/17 05:55 03/22/17 06:24 Dextrose IVPB 03/22/17 06:54 250 mls/hr ONCE ONE Administration Protocol Morphine Sulfate 4 mg 03/22/17 03:19 03/22/17 03:36 Morphine Injection - IVPUSH 03/22/17 03:20 4 mg ONCE ONE Administration Ondansetron HCl 4 mg 03/22/17 03:19 03/22/17 03:36 Zofran Injection IVPUSH 03/22/17 03:20 4 mg ONCE ONE Administration Piperacillin Sod/Tazobactam Sod 3.375 gm 03/22/17 05:55 03/22/17 06:24 Zosyn 3.375gm Ivpb (Pre-Docked) IV 03/22/17 05:56 3.375 gm ONCE ONE Administration Protocol Sodium Chloride 1,000 ml 03/22/17 03:19 03/22/17 03:36 Normal Saline - IV 03/22/17 03:20 1,000 ml ONCE ONE Administration Sodium Chloride 1,000 ml 03/22/17 05:19 03/22/17 06:17 Normal Saline - IV 03/22/17 05:20 1,000 ml ONCE ONE Administration <Aguilar Pardo - Last Filed: 03/22/17 09:00> Medical Decision Making - Medical Decision Making 03/22/17 04:55 The patient is a 76M with a PMH including choledocolithiasis with duodenal perforation and pancreatitis. Labs and imaging will be ordered including CTAP. Pending labs/imaging. 03/22/17 05:19 Lactate 2.9. Will hydrate. WBC of 17. Pending CTAP. 03/22/17 06:07 CTAP preliminary read shows pneumobilia. Will give broad spectrum abx. 03/22/17 07:07 Pt signed out to Dr. Pardo day team. <Anmol Ward - Last Filed: 03/22/17 07:07> *DC/Admit/Observation/Transfer <Anmol Ward - Last Filed: 03/22/17 07:07> - Discharge Dispostion Admit: Yes <Aguilra Pardo - Last Filed: 03/22/17 09:00> Diagnosis at time of Disposition: Pneumobilia - Referrals Referrals: Gerry Puente MD [Primary Care Provider] - - Patient Instructions - Post Discharge Activity
[2017-03-22 04:30] LABS: INR 1.09 (0.82-1.09); PROTHROMBIN TIME (PATIENT) 12.3 SEC (9.98-11.88)
[2017-03-22 04:32] LABS: CHLORIDE 102 mmol/L (98-107); SODIUM 139 mmol/L (136-145)
[2017-03-22 04:37] LABS: ALBUMIN 3.7 g/dl (3.4-5.0); ANION GAP 14 (8-16); BILIRUBIN,TOTAL 0.3 mg/dL (0.2-1.0); BLOOD UREA NITROGEN 11 mg/dL (7-18); CALCIUM 9.9 mg/dL (8.5-10.1); CO2 23 mmol/L (21-32); CREATININE 0.9 mg/dL (0.7-1.3); GLUCOSE,RANDOM 149 mg/dL (74-106); LIPASE 90 U/L (73-393); SGPT/ALT 16 U/L (12-78); TOT PROT 8.5 g/dl (6.4-8.2)
[2017-03-22 04:38] LABS: ALK PHOS 82 U/L (45-117)
[2017-03-22 04:41] LABS: MAGNESIUM 1.7 mg/dL (1.8-2.4); POTASSIUM 4.1 mmol/L (3.5-5.1); SGOT/AST 17 U/L (15-37)
[2017-03-22] MEDS ORDERED: VANCOMYCIN 1,000 MG in DEXTROSE 5%-WATER - 250 ML IVPB ONE (05:55)
[2017-03-22] MEDS ORDERED: PIPERACILLIN/TAZOB 3.375 GM/50 ML PRE-DOCKED IV ONE (05:55)
[2017-03-22 06:11] LABS: URINE APPEARANCE CLEAR; URINE BILIRUBIN NEGATIVE (NEGATIVE); URINE BLOOD NEGATIVE (NEGATIVE); URINE COLOR STRAW; URINE GLUCOSE (UA) 1+ (NEGATIVE); URINE KETONE 1+ (NEGATIVE); URINE LEUK ESTERASE NEGATIVE (NEGATIVE); URINE NITRITE NEGATIVE (NEGATIVE); URINE PROTEIN NEGATIVE (NEGATIVE); URINE UROBILINOGEN NEGATIVE mg/dL (0.2-1.0)
[2017-03-22] MEDS ORDERED: VANCOMYCIN 1 GRAM (PRE-DOCKED) 1,000 MG/250 ML BAG IVPB ONE (06:19)
[2017-03-22] MEDS ORDERED: PIPERACILLIN/TAZOB 3.375 GM 3.375 GM/50 ML BAG IVPB ONE (06:19)
--- NOTE | 2017-03-22 14:45 | EKG ---
Test Reason : Blood Pressure : / mmHG Vent. Rate : 065 BPM Atrial Rate : 065 BPM P-R Int : 148 ms QRS Dur : 094 ms QT Int : 432 ms P-R-T Axes : 056 072 056 degrees QTc Int : 449 ms NORMAL SINUS RHYTHM WITH SINUS ARRHYTHMIA NORMAL ECG WHEN COMPARED WITH ECG OF 24-NOV-2016 12:09, NO SIGNIFICANT CHANGE WAS FOUND Confirmed by Felix Rodrigues MD ([id number]) on 03/22/2017 2:45:01 PM Referred By: Confirmed By:Felix Rodrigues MD
[2017-03-22] MEDS ORDERED: PIPERACILLIN/TAZOB 4.5 GM/100 ML PRE-DOCKED IVPB SCH (18:45)
--- NOTE | 2017-03-22 20:11 | HP ---
Admitting History and Physical - Admission History of Present Illness: The patient is a 76 year old male, with a significant past medical history of CVA, HTN, HLD, CVA, BPH and choledocholithiasis. Patient was admitted to the hospital at [facility] in November 2016 for choledocholithiasis and subsequently underwent ERCP w/ stone extraction and stent placement. However pt also developed pancreatitis and perforated duodenum during that hospitalization. Pt now presented to the ER bc of abdominal pain x 3 days associated w/ nausea/vomiting and diaphoresis. In the ER pt found to have WBC > 17,000 and was febrile to 101. Pt also had ct scan abd wc showed pneumobilia and distended gallbladder w/ edema. 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 Cardiovascular: Yes: HTN, Hyperlipdemia Gastrointestinal: Yes: Other (Choledocholithiasis) Hepatobiliary: Yes: Cholelithiasis Renal/: Yes: BPH Psych: Yes: Depression - Past Surgical History Additional Past Surgical History: Biliary stent - Smoking History Smoking history: Never smoked Have you smoked in the past 12 months: No Aproximately how many cigarettes per day: 0 If you are a former smoker, when did you quit?: MANY YRS AGO - Alcohol/Substance Use Hx Alcohol Use: No - Social History History of Recent Travel: No Home Medications - Allergies Allergies/Adverse Reactions: Allergies Allergy/AdvReac Type Severity Reaction Status Date / Time No Known Allergies Allergy Verified 03/22/17 03:06 - Home Medications Home Medications: Ambulatory Orders Aspirin [ASA -] 81 mg PO Q2D 10/13/11 Tamsulosin HCl 0.4 mg PO DAILY 10/13/11 Cholecalciferol (Vitamin D3) [Vitamin D3 -] 1,000 unit PO DAILY 11/23/16 Pantoprazole Sodium [Protonix -] 20 mg PO DAILY 11/23/16 Paroxetine HCl [Paxil -] 20 mg PO DAILY 11/23/16 Ubidecarenone [Co Q-10] 300 mg PO DAILY 11/23/16 Losartan 50Mg/Hctz 12.5MG [Hyzaar -] 0.5 tab PO HS 11/24/16 Family Disease History - Family Disease History Family History: Unremarkable Review of Systems - Review of Systems Constitutional: reports: Fever, Loss of Appetite, Weakness Eyes: reports: No Symptoms HENT: reports: No Symptoms Neck: reports: No Symptoms Cardiovascular: reports: No Symptoms Respiratory: reports: No Symptoms Gastrointestinal: reports: Abdominal Pain, Nausea, Vomiting Genitourinary: reports: No Symptoms Musculoskeletal: reports: No Symptoms Physical Examination Vital Signs: Vital Signs Temperature 99.7 F H 03/22/17 19:07 Pulse Rate 105 H 03/22/17 16:35 Respiratory Rate 20 03/22/17 16:35 Blood Pressure 158/95 03/22/17 16:35 O2 Sat by Pulse Oximetry (%) 99 03/22/17 09:46 Constitutional: Yes: Calm Eyes: Yes: WNL HENT: Yes: WNL Neck: Yes: WNL, Supple Cardiovascular: Yes: Tachycardia Respiratory: Yes: WNL, Regular, CTA Bilaterally Gastrointestinal: Yes: Tenderness (BS (+) (-) guarding/rebound) Musculoskeletal: Yes: WNL Extremities: Yes: WNL Edema: No Neurological: Yes: WNL, Alert, Oriented ...Motor Strength: WNL Labs: CBC, BMP 03/22/17 03:36 03/22/17 03:36 Problem List - Problems (1) Abdominal pain Assessment/Plan: Related to gallbladder disease Check US abdomen GI/Surgical consults Cont IV antibxs Cont IVF NPO Code(s): R10.9 - UNSPECIFIED ABDOMINAL PAIN Qualifiers: Abdominal location: generalized Qualified Code(s): R10.84 - Generalized abdominal pain (2) HTN (hypertension) Assessment/Plan: Cont antihypertensives However will need to monitor closely BP in setting of fever/infectionMay need to dc if BP decreases Code(s): I10 - ESSENTIAL (PRIMARY) HYPERTENSION (3) HLD (hyperlipidemia) Code(s): E78.5 - HYPERLIPIDEMIA, UNSPECIFIED (4) BPH (benign prostatic hyperplasia) Code(s): N40.0 - BENIGN PROSTATIC HYPERPLASIA WITHOUT LOWER URINRY TRACT SYMP
[2017-03-22] MEDS: PIPERACILLIN/TAZOB 4.5 GM 4.5 GM in DEXTROSE 5%-WATER - 100 ML IVPB SCH (21:20)
[2017-03-23] MEDS: PIPERACILLIN/TAZOB 4.5 GM 4.5 GM in DEXTROSE 5%-WATER - 100 ML IVPB SCH ×3 (01:41→17:12)
[2017-03-23] MEDS ORDERED: ACETAMINOPHEN 325 MG TABLET (FP) PO PRN (02:49)
[2017-03-23] MEDS ORDERED: DEXTROSE 5%-0.45% SALINE 1,000 ML IV SCH (03:00)
[2017-03-23] MEDS ORDERED: TAMSULOSIN HCL 0.4 MG CAP.ER.24H (FP) PO SCH (08:30)
[2017-03-23 08:41] LABS: BASO % 0.3 % (0-2.0); EOS % 0.1 % (0-4.5); HEMATOCRIT 39.6 % (35.4-49); HEMOGLOBIN 12.3 GM/dL (11.7-16.9); LYMPH % 15.2 % (8-40); MCH 26.3 pg (25.7-33.7); MCHC 31.1 g/dl (32.0-35.9); MEAN CELL VOLUME 84.7 fl (80-96); MEAN PLT VOLUME 8.5 fl (7.5-11.1); MONO % 6.2 % (3.8-10.2); NEUT % 78.2 % (42.8-82.8); PLATELET COUNT 328 K/MM3 (134-434); RBC 4.68 M/mm3 (4.00-5.60); RDW 16.2 % (11.9-15.9); WHITE BLOOD COUNT 24.8 K/mm3 (4.0-10.0)
[2017-03-23] MEDS: ACETAMINOPHEN 325 MG TABLET (FP) PO PRN ×2 (08:43→15:31)
--- NOTE | 2017-03-23 09:04 | CONSULT ---
- Consultation REQUESTING PROVIDER: CONSULT REQUEST: We have been asked to surgically evaluate this patient for Cholecystisis. PCP:Ysabel Gordillo HISTORY OF PRESENT ILLNESS: 76 yo male presents with 3 days of vomiting, abdominal pain and fever. He presented with Choledocolithiasis in November 2016 and subsequently underwent ERCP with removal of large stone and stent placment on 11/23/16. He was then was found to have a micro perforation and post ERCP pancreatitis immediately post op which was treated conservatively. PMHx: Past Medical History KEYSMITH CVA Cardio/Vascular HTN,Hyperlipdemia Gastrointestinal Other (Choledocholithiasis) Hepatobiliary Cholelithiasis Renal/ BPH Psych Depression PSHx: ERCP 11/23/16 Home Medications Medication Instructions Recorded Aspirin [ASA -] 81 mg PO Q2D 10/13/11 Tamsulosin HCl 0.4 mg PO DAILY 10/13/11 Cholecalciferol (Vitamin D3) 1,000 unit PO DAILY 11/23/16 [Vitamin D3 -] Pantoprazole Sodium [Protonix -] 20 mg PO DAILY 11/23/16 Paroxetine HCl [Paxil -] 20 mg PO DAILY 11/23/16 Ubidecarenone [Co Q-10] 300 mg PO DAILY 11/23/16 Losartan 50Mg/Hctz 12.5MG [Hyzaar 0.5 tab PO HS 11/24/16 -] Allergies Allergy/AdvReac Type Severity Reaction Status Date / Time No Known Allergies Allergy Verified 03/22/17 03:06 REVIEW OF SYSTEMS: CONSTITUTIONAL: Absent: weight loss Absent: chest pain, syncope, RESPIRATORY: Absent: cough, shortness of breath, hemoptysis GASTROINTESTINAL: Absent: melena, hematochezia Absent: myalgia, arthralgia, joint swelling, PSYCHIATRIC: Absent: anxiety, depression, PHYSICAL EXAM: GENERAL: Awake, alert, and fully oriented, in no acute distress. HEAD: Normal with no signs of trauma. missing teeth NECK: Normal ROM, LUNGS: Clear to auscultation bilat anteriorly. No wheezes, and no crackles. No accessory muscle use on 2L NC HEART: Regular rate and rhythm. ABDOMEN: Soft, midly distended with TTP over RUQ, some guarding, UPPER EXTREMITIES: 2+ pulses, warm, well-perfused. NEUROLOGICAL: Normal speech, gait not observed, ESL PSYCH: Cooperative. Good eye contact. Appropriate mood and affect. SKIN: Warm, dry, normal turgor, no rashes or lesions noted. Vital Signs Temperature 99.2 F 03/23/17 06:00 Pulse Rate 82 03/23/17 06:00 Respiratory Rate 20 03/23/17 06:00 Blood Pressure 130/64 03/23/17 06:00 O2 Sat by Pulse Oximetry (%) 99 03/22/17 09:46 Lab Results WBC 24.8 K/mm3 (4.0-10.0) H D 03/23/17 06:30 RBC 4.68 M/mm3 (4.00-5.60) 03/23/17 06:30 Hgb 12.3 GM/dL (11.7-16.9) 03/23/17 06:30 Hct 39.6 % (35.4-49) 03/23/17 06:30 MCV 84.7 fl (80-96) 03/23/17 06:30 MCHC 31.1 g/dl (32.0-35.9) L 03/23/17 06:30 RDW 16.2 % (11.9-15.9) H 03/23/17 06:30 Plt Count 328 K/MM3 (134-434) 03/23/17 06:30 Sodium 139 mmol/L (136-145) 03/22/17 03:36 Potassium 4.1 mmol/L (3.5-5.1) 03/22/17 03:36 Chloride 102 mmol/L (98-107) 03/22/17 03:36 Carbon Dioxide 23 mmol/L (21-32) D 03/22/17 03:36 Anion Gap 14 (8-16) 03/22/17 03:36 BUN 11 mg/dL (7-18) 03/22/17 03:36 Creatinine 0.9 mg/dL (0.7-1.3) D 03/22/17 03:36 Random Glucose 149 mg/dL (74-106) H D 03/22/17 03:36 Calcium 9.9 mg/dL (8.5-10.1) D 03/22/17 03:36 Blood Type Cancelled 03/22/17 03:36 Antibody Screen Cancelled 03/22/17 03:36 INR 1.09 (0.82-1.09) D 03/22/17 03:36 CT of Abdomen and Pelvis with IV contrast reveals, CBD stent in place with good position, mild pneumobilia in Gallbladder with mild distention, pericholecystic fluid haziness and edema. Diverticular disease. Problem List - Problems (1) Abdominal pain Assessment/Plan: Abdominal pain with white count, fever and CT Scan consistent with billiary pathology. Plan: 1) NPO for potential OR later today 2) Correlate CT scan with Ultrasound study 3) Continue IV ABX 4) Pain control. Code(s): R10.9 - UNSPECIFIED ABDOMINAL PAIN Qualifiers: Abdominal location: generalized Qualified Code(s): R10.84 - Generalized abdominal pain Visit type - Case Type Case Type: ED Admission - Emergency Emergency Visit: Yes ED Registration Date: 03/22/17 Care time: The patient presented to the Emergency Department on the above date and was hospitalized for further evaluation of their emergent condition. - New patient This patient is new to me today: Yes Date on this admission: 03/23/17
[2017-03-23 09:09] LABS: CHLORIDE 99 mmol/L (98-107); POTASSIUM 4.2 mmol/L (3.5-5.1); SODIUM 136 mmol/L (136-145)
[2017-03-23 09:16] LABS: ALBUMIN 3.1 g/dl (3.4-5.0); ALK PHOS 72 U/L (45-117); ANION GAP 9 (8-16); BILIRUBIN,TOTAL 0.8 mg/dL (0.2-1.0); BLOOD UREA NITROGEN 9 mg/dL (7-18); CO2 28 mmol/L (21-32); CREATININE 0.8 mg/dL (0.7-1.3); GLUCOSE,RANDOM 102 mg/dL (74-106); SGOT/AST 8 U/L (15-37); SGPT/ALT 13 U/L (12-78); TOT PROT 7.3 g/dl (6.4-8.2)
[2017-03-23] MEDS ORDERED: HEPARIN NA (PORCINE) 5,000 UNITS/ML 1ML VIAL SQ SCH (10:00)
[2017-03-23] MEDS ORDERED: PANTOPRAZOLE 20 MG TABLET (FP) PO SCH (10:00)
[2017-03-23] MEDS ORDERED: PARoxetine HCL 20 MG TABLET (FP) PO SCH (10:00)
[2017-03-23] MEDS ORDERED: ASPIRIN 81 MG CHEWABLE TABLETS PO SCH (10:00)
[2017-03-23] MEDS ORDERED: PT OWN MED DRAWER 7, Y5N ONE ×2 (10:05→17:08)
--- NOTE | 2017-03-23 15:39 | CON.ID ---
Consult Consult Specialty:: infectious diseases Referred by:: Reason for Consultation:: fever,sepsis - History of Present Illness Chief Complaint: abd pain,fever,vomiting History of Present Illness: 76 yo male presents with 3 days of vomiting, abdominal pain and fever. according to the patient he was having mucho abd pain in the RUQ and was having high grade fevers now he is also c/o of vomiting and nausea. He presented with Choledocolithiasis in November 2016 and subsequently underwent ERCP with removal of large stone and stent placment on 11/23/16. He was then was found to have a micro perforation and post ERCP pancreatitis immediately post op which was treated conservatively. 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 Cardio/Vascular: Yes: HTN, Hyperlipdemia Gastrointestinal: Yes: Other (Choledocholithiasis) Hepatobiliary: Yes: Cholelithiasis Renal/: Yes: BPH Psych: Yes: Depression - Alcohol/Substance Use Hx Alcohol Use: No - Smoking History Smoking history: Never smoked Have you smoked in the past 12 months: No Aproximately how many cigarettes per day: 0 If you are a former smoker, when did you quit?: MANY YRS AGO - Social History Usual Living Arrangement: With Spouse History of Recent Travel: No Home Medications - Allergies Allergies/Adverse Reactions: Allergies Allergy/AdvReac Type Severity Reaction Status Date / Time No Known Allergies Allergy Verified 03/22/17 03:06 - Home Medications Home Medications: Ambulatory Orders Aspirin [ASA -] 81 mg PO Q2D 10/13/11 Tamsulosin HCl 0.4 mg PO DAILY 10/13/11 Cholecalciferol (Vitamin D3) [Vitamin D3 -] 1,000 unit PO DAILY 11/23/16 Pantoprazole Sodium [Protonix -] 20 mg PO DAILY 11/23/16 Paroxetine HCl [Paxil -] 20 mg PO DAILY 11/23/16 Ubidecarenone [Co Q-10] 300 mg PO DAILY 11/23/16 Losartan 50Mg/Hctz 12.5MG [Hyzaar -] 0.5 tab PO HS 11/24/16 Review of Systems - Review of Systems Constitutional: reports: Fever, Other Eyes: reports: No Symptoms HENT: reports: No Symptoms Neck: reports: No Symptoms Cardiovascular: reports: No Symptoms Respiratory: reports: No Symptoms Gastrointestinal: reports: Abdominal Pain Musculoskeletal: reports: No Symptoms Integumentary: reports: No Symptoms Neurological: reports: No Symptoms Endocrine: reports: No Symptoms Hematology/Lymphatic: reports: No Symptoms Psychiatric: reports: No Symptoms Physical Exam Vital Signs: Vital Signs Temperature 101.5 F H 03/23/17 15:32 Pulse Rate 85 03/23/17 15:09 Respiratory Rate 18 03/23/17 15:09 Blood Pressure 131/59 03/23/17 15:09 O2 Sat by Pulse Oximetry (%) 98 03/23/17 09:00 Constitutional: Yes: Moderate Distress Eyes: Yes: Other HENT: Yes: Atraumatic Cardiovascular: Yes: Regular Rate and Rhythm Respiratory: Yes: Regular, Poor Air Entry Gastrointestinal: Yes: Distention, Hypoactive Bowel Sounds, Tenderness (RUQ) Musculoskeletal: Yes: WNL Extremities: Yes: WNL Neurological: Yes: Alert, Oriented Psychiatric: Yes: Alert, Oriented Labs: CBC, BMP 03/23/17 06:30 03/23/17 06:30 Imaging - Results Chest X-ray: Report Reviewed, Image Reviewed Cat Scan: Report Reviewed, Image Reviewed Ultrasound: Report Reviewed, Image Reviewed Assessment/Plan patient who is very septic and on ct showing pneumobilia as well as ac choleycystitis plan is to transfer the patent fever sepsis choleycystitis abd pain plan conitue abx cx result noted very close watch on the patient if patient detoriates icu
[2017-03-23 17:06] VITALS: TEMP 99.8
[2017-03-23 17:13] VITALS: BP 121/47; PULSE 93
--- NOTE | 2017-03-23 18:06 | PN ---
Progress Note (short form) - Note Progress Note: came to see the patient, he was transferred to [facility]
[2017-03-23] MEDS ORDERED: LOSARTAN 50MG/HCTZ 12.5MG 1 TAB (FP) PO SCH (22:00)
== END 2017-03-23 17:58 | disposition short-term general hospital (02) | DRG 872 ==
LOC: JER 02:56 → JERBED 09:00 → J8W 13:24
PROVIDERS: ADMIT Internal Medicine; ATTEND Internal Medicine
DX: A41.9 Sepsis, unspecified organism (principal); K81.0 Acute cholecystitis; I10 Essential (primary) hypertension; F32.9 Major depressive disorder, single episode, unspecified; E78.00 Pure hypercholesterolemia, unspecified; Z86.73 Personal history of transient ischemic attack (TIA), and cerebral infarction without residual deficits; N40.0 Benign prostatic hyperplasia without lower urinary tract symptoms
CPT/HCPCS: 36415; 71045-TC; 74177-TC; 76700-TC; 80053; 81003; 82550; 83605; 83690; 83735; 84484; 85025; 85610; 85730; 87040; 93005; 93010; 99285-25